=== PATIENT | male | born 1960 | race Caucasian/White ===

== ENCOUNTER 2019-09-11 12:33 | Emergency (ER) | payer MEDICAID ==
[2019-09-11] MEDS ORDERED: fentaNYL 250 MCG/5 ML SDV IVPUSH ONE (12:48)
--- NOTE | 2019-09-11 12:55 | EDM.PDOC ---
ED HPI GENERAL MEDICAL PROBLEM - General Chief Complaint: Abdominal Pain Stated Complaint: ABDOMINAL PAIN Time Seen by Provider: 09/11/19 12:45 Source of Information: Reports: Patient History Limitations: Reports: No Limitations - History of Present Illness INITIAL COMMENTS - FREE TEXT/NARRATIVE: This patient presented to the [facility] for evaluation of abdominal pain. He was evaluated by the clinic provider, sent for a CT of his abdomen ( without contrast) and left. He was out shopping and "running errands" when he received a phone call to return because "something was wrong." He was then referred to the ED for "a workup" based on the CT findings. Patient is not sure what he is to be seen for. According to CT report, the patient has a diverticulosis; report further states "focal perforation cannot be ruled out." The patient states that he has had abdominal pain intermittently the past 7-10 days. He has not had any nausea, vomiting, diarrhea, or fever. He has been eating solid foods, albeit in smaller amounts until last evening. He has been drinking clear liquids today. Onset: Gradual Onset Date: 09/01/19 Duration: Intermittent, Waxing/Waning Location: Reports: Abdomen Improves with: Reports: None Worsens with: Reports: None Associated Symptoms: Denies: Cough, Fever/Chills, Headaches, Loss of Appetite, Nausea/Vomiting, Rash, Shortness of Breath, Weakness - Related Data Allergies Allergy/AdvReac Type Severity Reaction Status Date / Time No Known Allergies Allergy Verified 09/11/19 12:56 ED ROS GENERAL - Review of Systems Review Of Systems: See Below Constitutional: Denies: Fever, Chills, Weakness, Decreased Appetite HEENT: Reports: No Symptoms Respiratory: Reports: No Symptoms Cardiovascular: Reports: No Symptoms Endocrine: Reports: No Symptoms GI/Abdominal: Reports: Abdominal Pain, Decreased Appetite. Denies: Distension, Nausea, Vomiting Skin: Reports: No Symptoms Neurological: Reports: No Symptoms ED EXAM, GI/ABD - Physical Exam Exam: See Below Exam Limited By: No Limitations General Appearance: Alert, WD/WN, No Apparent Distress Eyes: Bilateral: Normal Appearance Ears: Normal External Exam Nose: Normal Inspection Throat/Mouth: Normal Inspection Head: Atraumatic, Normocephalic Neck: Normal Inspection, Full Range of Motion Respiratory/Chest: No Respiratory Distress, Lungs Clear, Chest Non-Tender Cardiovascular: Normal Peripheral Pulses, Regular Rate, Rhythm GI/Abdominal Exam: Soft, No Distention, Other (Bowel sounds decreased in all quadrants, tenderness with palpation of bilateral lower quadrants, left greater than right.) Back Exam: Normal Inspection Extremities: Normal Inspection, Normal Range of Motion Neurological: Alert, Oriented Psychiatric: Normal Affect, Normal Mood Skin Exam: Warm, Dry Course - Orders/Labs/Meds Orders: Active Orders 24 hr Category Date Time Status Sodium Chloride 0.9% [Normal Saline] 1,000 ml Med 09/11/19 13:00 Ordered IV ASDIRECTED fentaNYL [Sublimaze] Med 09/11/19 12:48 Once 50 mcg IVPUSH ONETIME ONE Medication Orders Fentanyl (Sublimaze) 50 mcg IVPUSH ONETIME ONE Stop: 09/11/19 12:49 Sodium Chloride (Normal Saline) 1,000 mls @ 1,000 mls/hr IV ASDIRECTED [facility] Meds: Medications Generic Name Dose Route Start Last Admin Trade Name Freq PRN Reason Stop Dose Admin Fentanyl 50 mcg 09/11/19 12:48 Sublimaze IVPUSH 09/11/19 12:49 ONETIME ONE Sodium Chloride 1,000 mls @ 1,000 mls/hr 09/11/19 13:00 Normal Saline IV ASDIRECTED GE - Re-Assessments/Exams Free Text/Narrative Re-Assessment/Exam: 09/11/19 12:58 Patient presents to ED for follow up to a CT scan obtained by clinic provider. Clinic provider (Roly) made arrangements for the transfer of this patient to [facility] related to his pain and CT scan findings. Roly states she contacted the [facility] hospitalist, Dr. Conner, who did agree to accept this patient in transfer to their facility. I did confirm this information via phone with [facility]. The patient was prepared for transfer via S ground ambulance and was stable at the time he was transferred to [facility]. Departure - Departure Time of Disposition: 13:30 Disposition: DC/Tfer to Other 70 Condition: Good Clinical Impression: Diverticulosis - Discharge Information *PRESCRIPTION DRUG MONITORING PROGRAM REVIEWED*: No Referrals: PCP,Unknown [Primary Care Provider] - Forms: ED Department Discharge, ED Return to Work/School Form, Interfacility Transfer EMTALA - My Orders Last 24 Hours: My Active Orders 09/11/19 12:48 fentaNYL [Sublimaze] 50 mcg IVPUSH ONETIME ONE 09/11/19 13:00 Sodium Chloride 0.9% [Normal Saline] 1,000 ml IV ASDIRECTED - Assessment/Plan Last 24 Hours: My Active Orders 09/11/19 12:48 fentaNYL [Sublimaze] 50 mcg IVPUSH ONETIME ONE 09/11/19 13:00 Sodium Chloride 0.9% [Normal Saline] 1,000 ml IV ASDIRECTED
[2019-09-11] MEDS ORDERED: Sodium Chloride 0.9% 1,000 ML IV SCH (13:00)
[2019-09-11] MEDS ORDERED: fentaNYL 100 MCG/2 ML SDV ONE (13:24)
== END 2019-09-11 14:15 | disposition other institution (70) ==
LOC: LB.ED 12:33
DX: K57.90 Diverticulosis of intestine, part unspecified, without perforation or abscess without bleeding (principal)
CPT/HCPCS: 96361; 96374; 99284-25; A0425; A0429; J3010; J7030

== ENCOUNTER 2020-06-30 11:35 | Emergency (ER) | payer MEDICAID, OTHER ==
--- NOTE | 2020-06-30 12:37 | EDM.PDOC ---
ED HPI GENERAL MEDICAL PROBLEM - General Stated Complaint: STROKE SYMPTOMS Time Seen by Provider: 06/30/20 11:55 Source of Information: Reports: Patient History Limitations: Reports: No Limitations - History of Present Illness INITIAL COMMENTS - FREE TEXT/NARRATIVE: Just after 1000 this morning patient noticed right arm and leg numbness and weakness and slurred speech after having breakfast. En route to Hospital he feels that the slurred speech and leg weakness resolved, but arm weakness and arm and leg numbness persists. Patient ambulated into ED without gait issues. BS [address] Neuro exam reveals right arm drift, decreased sensation in right side of face, and numbness at right knee other michaels unremarkable. NIH 2. Called [place] and spoke with Dr. Remy with neuro, and ED MD, they would like BP less than 185/110 then TPA started, and transfer to Stroke neuro [place]. Called [facility], Stroke Neurologist Dr. Barraza, he would like TPA started and rapid transport to [place]. Patient will be assessed in the ED on arrival. 1310 TPA bolus given, BP 163/90 after 10mg IV labetolol. Helicopter 49 minutes ETA [place] from [place]. 1330 TPA infusion running, no changes in neuro status, no signs of obvious bleeding. 1345 TPA infusion running, no neuro changes, no obvious bleeding 1405 No neuro changes, slight bleeding on left tip of tongue, patient states he bit it yesterday. No other obvious bleeding. Onset: Today Onset Date: 06/30/20 Duration: Intermittent Location: Reports: Face, Upper Extremity, Right, Lower Extremity, Right Severity: Mild Improves with: Reports: None Worsens with: Reports: None Associated Symptoms: Reports: No Other Symptoms, Weakness - Related Data Allergies Allergy/AdvReac Type Severity Reaction Status Date / Time No Known Allergies Allergy Verified 09/11/19 12:56 Home Meds: Home Meds Metoprolol Tartrate [Lopressor] 25 mg PO BID 09/11/19 [History] atorvaSTATin [Lipitor] 40 mg PO DAILY 09/11/19 [History] metFORMIN [Glucophage] 500 mg PO BIDMEALS 09/11/19 [History] Past Medical History Cardiovascular History: Reports: High Cholesterol, Hypertension Gastrointestinal History: Reports: Diverticulosis Musculoskeletal History: Reports: None Endocrine/Metabolic History: Reports: Diabetes, Type II Social & Family History - Caffeine Use Caffeine Use: Reports: Coffee ED ROS GENERAL - Review of Systems Review Of Systems: See Below Constitutional: Reports: Weakness HEENT: Reports: No Symptoms Respiratory: Reports: No Symptoms Cardiovascular: Reports: No Symptoms Endocrine: Reports: No Symptoms GI/Abdominal: Reports: No Symptoms : Reports: No Symptoms Skin: Reports: No Symptoms Neurological: Reports: Numbness, Tingling, Weakness. Denies: Confusion, Headache, Trouble Speaking, Gait Disturbance Psychiatric: Reports: No Symptoms Hematologic/Lymphatic: Reports: No Symptoms ED EXAM, NEURO - Physical Exam Exam: See Below Exam Limited By: No Limitations General Appearance: Alert, No Apparent Distress Eye Exam: Bilateral Eye: Normal Inspection, PERRL, Vision Changes (DENIES) Ears: Normal External Exam, Normal Canal, Hearing Grossly Normal, Normal TMs Nose: Normal Inspection, Normal Mucosa, No Blood Throat/Mouth: Normal Inspection, Normal Lips, Normal Teeth, Normal Gums, Normal Oropharynx, Normal Voice, No Airway Compromise Head Exam: Atraumatic Neck: Normal Inspection, Non-Tender, Full Range of Motion Respiratory/Chest: No Respiratory Distress, Lungs Clear, Normal Breath Sounds, No Accessory Muscle Use. No: Respiratory Distress, Decreased Breath Sounds Cardiovascular: Normal Peripheral Pulses, Regular Rate, Rhythm, No Edema, No JVD, No Murmur GI/Abdominal: Normal Bowel Sounds, Soft, Non-Tender, No Organomegaly, No Distention (Male) Exam: Normal Inspection Neurological: Alert, Normal Mood/Affect, Normal Dorsiflexion, CN II-XII Intact, Normal Plantar Flexion, Normal Gait, Normal Reflexes, Oriented x 3, Abnormal Sensation Back Exam: Normal Inspection, Full Range of Motion Extremities: Normal Inspection, Normal Range of Motion, Non-Tender, No Pedal Edema, Normal Capillary Refill Psychiatric: Normal Affect, Normal Mood Skin Exam: Warm, Dry, Intact *Q Meaningful Use (ADM) - Stroke *Q Stroke Criteria *Q: 4 Course - Vital Signs Last Recorded V/S: Last Vital Signs Temp 99.7 F 06/30/20 12:00 Pulse 90 06/30/20 13:50 Resp 17 06/30/20 13:50 BP 156/90 H 06/30/20 13:50 Pulse Ox 98 06/30/20 13:50 - Orders/Labs/Meds Orders: Active Orders 24 hr Category Date Time Status Assess Neurological Status [RC] CONTINUOUS Care 06/30/20 13:35 Ordered Blood Glucose Check, Bedside [RC] ONETIME Care 06/30/20 12:12 Active EKG Documentation Completion [RC] ASDIRECTED Care 06/30/20 12:12 Active CXR [Chest 1V Frontal] [CR] Stat Exams 06/30/20 12:52 Taken Blood Pressure Mgmt:Acute Stroke [OM.PC] Urgent Oth 06/30/20 12:30 Ordered Notify MD for bleeding or neuro changes [COMM] Routine Oth 06/30/20 13:08 Ordered Notify MD for bleeding or neuro changes [COMM] Stat Oth 06/30/20 13:35 Ordered Labs: Laboratory Tests 06/30/20 06/30/20 06/30/20 Range/Units 12:06 12:20 13:28 WBC 7.6 D (4.0-11.0) K/uL RBC 4.62 (4.50-6.50) M/uL Hgb 14.2 (13.0-18.0) g/dL Hct 40.5 (40.0-54.0) % MCV 88 (76-96) fL MCH 30.7 (27.0-32.0) pg MCHC 35.1 H (31.0-35.0) g/dL RDW 13.0 (11.0-16.0) % Plt Count 197 D (150-400) K/uL MPV 8.9 (6.0-10.0) fL Neut % (Auto) 73.3 H (45.0-70.0) % Lymph % (Auto) 18.0 L (20.0-40.0) % [place] % (Auto) 6.3 (3.0-10.0) % Eos % (Auto) 2.0 (1.0-5.0) % Baso % (Auto) 0.4 (0.0-0.5) % Neut # (Auto) 5.58 (2.00-7.50) K/uL Lymph # (Auto) 1.37 L (1.50-4.00) K/uL [place] # (Auto) 0.48 (0.20-0.80) K/uL Eos # (Auto) 0.15 (0.04-0.40) K/uL Baso # (Auto) 0.03 (0.02-0.10) K/uL Sodium 138 (136-145) mmol/L Potassium 4.4 (3.5-5.1) mmol/L Chloride 102 (98-107) mmol/L Carbon Dioxide 26.2 (21.0-32.0) mmol/L Anion Gap 14.2 (5.0-15.0) mmol/L BUN 17 D (8-26) mg/dL Creatinine 1.00 (0.70-1.30) mg/dL Est Cr Clr Drug Dosing 68.33 mL/min Estimated GFR (MDRD) > 60 (>60) MLS/MIN BUN/Creatinine Ratio 17.0 (6-25) Glucose 121 H (74-100) mg/dL Calcium 9.1 (8.5-10.1) mg/dL Total Bilirubin 0.5 D (0.0-1.0) mg/dL AST 15 (15-37) U/L ALT 27 (12-78) U/L Alkaline Phosphatase 52 (46-116) U/L Total Protein 7.3 (6.4-8.2) g/dL Albumin 3.7 (3.4-5.0) g/dL Globulin 3.6 (2.2-4.2) g/dL Albumin/Globulin Ratio 1.0 (0.8-2.0) SARS CoV-2 RNA Rapid ELOY Negative Meds: Medications Discontinued Medications Generic Name Dose Route Start Last Admin Trade Name Freq PRN Reason Stop Dose Admin Alteplase, Recombinant 63 mg 06/30/20 13:08 06/30/20 13:08 Activase IVPUSH 06/30/20 13:09 63 mg .BOLUS ONE Administration Alteplase, Recombinant 63 mg/ 0 mls @ 0 mls/hr 06/30/20 13:10 06/30/20 13:20 Premix IV 06/30/20 13:11 63 mls/hr .INFUSION ONE Administration Labetalol HCl 10 mg 06/30/20 12:39 06/30/20 12:40 Normodyne IVPUSH 06/30/20 12:40 10 mg ONETIME ONE Administration Protocol Departure - Departure Time of Disposition: 14:30 Disposition: [facility] Condition: Good Clinical Impression: Numbness and tingling of right arm, CVA, Cerebrovascular accident Stroke Qualifiers: CVA mechanism: unspecified Qualified Code(s): I63.9 - Cerebral infarction, unspecified - Discharge Information *PRESCRIPTION DRUG MONITORING PROGRAM REVIEWED*: Not Applicable *COPY OF PRESCRIPTION DRUG MONITORING REPORT IN PATIENT NIKKI: Not Applicable Instructions: Alteplase Treatment for Ischemic Stroke Forms: ED Department Discharge Sepsis Event Note (ED) - Focused Exam Vital Signs: Vital Signs Temp Pulse Resp BP BP Pulse Ox 06/30/20 13:50 90 17 156/90 H 98 06/30/20 13:33 91 18 172/95 H 100 06/30/20 13:05 89 163/90 H 98 06/30/20 13:03 87 15 164/90 H 98 06/30/20 12:59 86 157/91 H 97 06/30/20 12:45 91 165/91 H 96 06/30/20 12:38 84 165/97 H 95 06/30/20 12:15 85 178/106 H 97 06/30/20 12:00 99.7 F 91 17 191/98 H 96 06/30/20 11:59 99.7 F 91 20 191/98 H 96 - My Orders Last 24 Hours: My Active Orders 06/30/20 12:12 Blood Glucose Check, Bedside [RC] ONETIME EKG Documentation Completion [RC] ASDIRECTED 06/30/20 12:30 Blood Pressure Mgmt:Acute Stroke [OM.PC] Urgent 06/30/20 12:52 CXR [Chest 1V Frontal] [CR] Stat 06/30/20 13:08 Notify MD for bleeding or neuro changes [COMM] Routine 06/30/20 13:35 Assess Neurological Status [RC] CONTINUOUS Notify MD for bleeding or neuro changes [COMM] Stat - Assessment/Plan Last 24 Hours: My Active Orders 06/30/20 12:12 Blood Glucose Check, Bedside [RC] ONETIME EKG Documentation Completion [RC] ASDIRECTED 06/30/20 12:30 Blood Pressure Mgmt:Acute Stroke [OM.PC] Urgent 06/30/20 12:52 CXR [Chest 1V Frontal] [CR] Stat 06/30/20 13:08 Notify MD for bleeding or neuro changes [COMM] Routine 06/30/20 13:35 Assess Neurological Status [RC] CONTINUOUS Notify MD for bleeding or neuro changes [COMM] Stat
[2020-06-30] MEDS ORDERED: Labetalol 100 MG/20 ML MDV IVPUSH ONE (12:39)
--- NOTE | 2020-06-30 13:07 | CT ---
Date of Service: 06/30/20 Clinical Data: focal weakness UNENHANCED BRAIN CT: Multislice acquisition through the brain without IV contrast was performed. No priors. No masses or mass effect. No intracranial hemorrhage. No evidence of acute or subacute infarct. No osseous abnormalities. IMPRESSION: No acute intracranial abnormalities. [id number] [facility]
[2020-06-30] MEDS ORDERED: ALTEPLASE IV ONE (13:10)
--- NOTE | 2020-07-01 17:15 | CR ---
DATE OF SERVICE: 06/30/20 CLINICAL DATA: weakness AP CHEST: No priors. The patient has taken a poor inspiration. The heart size is normal. There is mild eventration of the right hemidiaphragm. The lungs are clear. No pneumothorax. No pleural effusions. [id number] [facility]
--- OUTSIDE RECORDS SUMMARY | 2020-08-24 15:24 | XMSREPORT ---
:1960 Author Organization [facility] s Address [address] [place] [address] Care Team Providers Name Role Phone Provider, Attributed RESOURCE Attributed Provider Unavailab mario Dunham APRN,VICKY Primary Care Provider MD Scottie Primary Care Provider Reason for Referral Comprehensive Primary Care Plus (Routine) Status Reason Specialty Diagnoses / Referred By Referred To Procedures Contact Contact New Request SLEEP MEDICINE Diagnoses Cerebrovascular accident (CVA), unspecified mechanism (HCC) Diana Carvalho Sleep Med Jorge Garcia MD [address] [address] [place], [place] Phone: [phone] Phone: Scheduling Instructions This is an electronic referral. Comprehensive Primary Care Plus (Routine) Status Reason Specialty Diagnoses / Referred By Referred To Procedures Contact Contact New Request CARDIOLOGY Diagnoses Cardiomyopathy, unspecified type (HCC) Holden Carvalho Cardiology Jorge Garcia MD [address] [address] [place] [address] Phone: Scheduling Instructions This is an electronic referral. Comprehensive Primary Care Plus (Routine) Status Reason Specialty Diagnoses / Referred By Referred To Contact Procedures Contact New Request Neurosurgery Diagnoses Cerebrovascular accident (CVA), unspecified mechanism (HCC) Johnathon Carvalho Neurovascular Sc Holden Garcia MD [address] [address] [place] [address] Phone: Fax: Scheduling Instructions This is an electronic referral. Reason for Visit Reason Comments Slurred Speech Patient arrives via [facility] michelle Trevino with concerns for stroke. Patient states around 1045 h e noticed his speech was slurred and numbness to right side of jitendra dy. Patient was given TPA prior to arrival in this ER. Per report, NIHS S was 2. TPA bolus given at 1310 and infusion ended at 1410. Auth/Cert Status Reason Specialty Diagnoses / Procedures Referred By Galdino brown Referred To Contact Encounter Details Date Type Department Care Team Description 06/30/2020 - Hospital Encounter [facility] Department [address] [place] [address] [phone] Stroke (cerebrum) 07/02/2020 CENTER 6AB NEURO Deshaun Bush MD [address] [place] [address] [phone] ([facility]) Herbert Ruiz MD [address] [place] [address] [phone] [address] [facility] Holden Carvalho MD [address] [place], [place] [id number] [place] [address] Allergies No Known Allergiesdocumented as of this encounter (statuses as of 07/02/2020) Medications Medication Sig Dispensed Refills Start End Date Status Date lisinopril Take 10 mg by 1 Activ e (PRINIVIL, ZESTRIL) mouth every 9 10 mg tablet night at bedtime metFORMIN Take 500 mg 3 Active (GLUCOPHAGE) 1000 MG by mouth 2 9 tablet times a day Turmeric (QC TUMERIC Take 1 0 Active COMPLEX PO) capsule by mouth 1 time per day CBD (cannabidiol) Take by mouth 0 Active oil 2 times a day as needed (ankle pain) miscellaneous oral Take 1-2 0 A ctive medication MISC capsules by mouth 1 time per day Qeeu-v-Iycyhm (systemic enyzme and herbal extract formula) aspirin 81 mg Take 1 tablet 30 tablet 1 07/23/20 Ac tive enteric coated (81 mg) by 0 20 tabletIndications: mouth 1 time Cerebrovascular per day for accident (CVA), 21 days unspecified mechanism (HCC) atorvaSTATin calcium Take 1 tablet 30 tablet 1 08/01 Active (LIPITOR) 80 mg (80 mg) by 0 20 tabletIndications: mouth every Cerebrovascular night at accident (CVA), bedtime unspecified mechanism (HCC) metoprolol succinate Take 1 tablet 90 tablet 4 07/08 Active (TOPROL XL) 100 mg (100 mg) by 0 21 SR tablet (24 mouth 1 time hr)Indications: per day Cardiomyopathy, unspecified type (HCC) clopidogrel (PLAVIX) Take 1 tablet 21 tablet 0 07/23 Active 75 mg (75 mg) by 0 20 tabletIndications: mouth 1 time Cerebrovascular per day for accident (CVA), 21 days unspecified mechanism (HCC) aspirin 325 MG Take 1 tablet 180 tablet 0 Active enteric coated (325 mg) by 0 tabletIndications: mouth 1 time Cerebrovascular per day accident (CVA), unspecified mechanism (HCC) atorvaSTATin Take 20 mg by 10 07/02/20 Dis continued (LIPITOR) 40 mg mouth every 9 20 (R eorder) tablet night at bedtime metoprolol tartrate Take 50 mg by 3 Discontinued (LOPRESSOR) 50 mg mouth 2 times 9 20 (Stop Taking at tablet a day Discharge) vitamin D3, Take 400 0 06/30/20 Disconti nued cholecalciferol, 400 Units by 20 (file clerk data entry units tablet mouth 2 times err or) a day aspirin 81 mg Take 81 mg by 0 07/02/20 Di scontinued enteric coated mouth 1 time 20 (R eorder) tablet per day documented as of this encounter (statuses as of 07/02/2020) Active Problems Problem Noted Date Ischemic cardiomyopathy 07/02/2020 Stroke (cerebrum) 06/30/2020 Acute diverticulitis 09/11/2019 Other and unspecified hyperlipidemia Postsurgical percutaneous transluminal coronary angiop lasty status Coronary atherosclerosis of andreafski coronary artery documented as of this encounter (statuses as of 07/02/2020) Immunizations Name Administration Dates Next Due FLU VACCINE SINGLE DOSE 09/16/2019 0.5mL(6MO+Fluzone/Flulaval/Fluarix,3YR+Afluria) documented as of this encounter Social History Tobacco Use Types Packs/Day Years Used Date Former Smoker Cigarettes, Pipe 1.5 Quit: 01/12 Smokeless Tobacco: Former User Comments: Cuurent Pipe Alcohol Use Drinks/Week oz/Week Comments Yes 21 Cans of beer 21.0 3 Beers Alcohol Habits Answer Date Recorded How often do you have a drink containing 4 or more times a w w[place] 09/11/2019 alcohol? How many drinks containing alcohol do you have 3 or 4 09/11/2019 on a typical day when you are drinking? How often do you have six or more drinks on one Less than mo nthly 09/11/2019 occasion? Sex Assigned at Date Recorded Not on file Job Start Date Occupation Industry Not on file Not on file Not on file Travel History Travel Start Travel End No recent travel history available. documented as of this encounter Last Filed Vital Signs Vital Sign Reading Time Taken Comments Blood Pressure 153/90 07/02/2020 9:19 AM CDT Pulse 94 07/02/2020 9:19 AM CDT Temperature 36.7 C (98 F) 07/02/2020 9:19 AM CDT Respiratory Rate 16 07/02/2020 9:19 AM CDT Oxygen Saturation 97% 07/02/2020 9:19 AM CDT Inhaled Oxygen Concentration - - Weight 73.9 kg (162 lb 14.4 oz) 07/02/2020 5:13 AM CDT Height 165.1 cm (5' 5") 06/30/2020 6:00 PM CDT Body Mass Index 27.11 06/30/2020 6:00 PM CDT documented in this encounter Functional Status Functional Status Response Date of Assessment Is the person deaf or does he/she have serious difficulty No 10/29/2019 hearing? Is this person blind or does he/she have difficulty No 10/29/2019 seeing even when wearing glasses? Do you have difficulty with walking, balance, climbing No 07/01/2020 stairs, or had a fall in the last 3 months? Does the patient have difficulty dressing or bathing? No 10/29/2019 Because of a physical, mental, or emotional condition; No 10/29/2019 does this person have difficulty doing errands alone such as visiting a doctor's office or shopping? Cognitive Status Response Date of Assessment Because of a physical, mental, or emotional condition; No 10/29/2019 does this person have serious difficulty concentrating, remembering, or making decisions? documented as of this encounter Discharge Summaries Holden Carvalho MD - 07/02/2020 11:14 AM CDT Discharge Summary Patient ID: Valencia Mora is a 60yr male. Attending Physician: Holden Carvalho MD Discharging Provider Specialty: Adult Hospitalist, Internal Medicine Admit Date: 06/30/2020 Discharge Date: 07/02/2020 Primary Care Physician: Jim Rubin MD Code Status: Full Code Primary Discharge Diagnoses <principal problem not specified> Active Problems: Coronary atherosclerosis of andreafski coronary artery Stroke (cerebrum) (HCC) Ischemic cardiomyopathy Resolved Problems: * No resolved hospital problems. * RUE weakness and hemipbody numbness, s/p tPA. MRI shows thalamic infarct which is typically small vessel in etiology. ASA 81 mg and Plavix 75 mg x 21 days till 07/23/2020 , then ASA 325 mg. Cardiomyopathy: EF 40%, cardiology recommended outpatient follow-up. Secondary Discharge Diagnoses Patient Active Problem List Diagnosis Other and unspecified hyperlipidemia Postsurgical percutaneous transluminal coronary angioplasty status Coronary atherosclerosis of andreafski coronary artery Acute diverticulitis Stroke (cerebrum) (HCC) Ischemic cardiomyopathy Hospital Course 60-year-old male with history of hypertension, hyperlipidemia, diabetes, CAD, last known well 10:45 AM on day of admission, he presented to outside hospital with mild right hemiparesis and hemibody numbness, NIH stroke scale of 2, CT negative for hemorrhage, status post IV TPA (bolus 1:10 PM on 06/30/2020), CTA negative for large vessel occlusion/flow-limiting stenosis - Neurovascular was consulted and they recommended that this Clinical presentation could be consistent with left hemispheric subcortical/left thalamic stroke. Patient does have scattered calcified plaque in the left common carotid artery. Patient was monitored in neuro ICU for IV TPA protocol, MRI brain at 24 hours post TPA was unremarkable. Patient transferred to general floor on 07/01/2020. Neurovascular recommended ASA 81 mg and Plavix 75 mg x 21 days, then ASA 325 mg. high-intensity statin, no need for anti-coagulation given EF more than 40%. Regarding cardiac history he has past medical history significant for CAD s/p STEMI in 2006 with bare metal stent to CX who initially presented with RUE weakness, likely small vessel infarct. An ECHO was obtained which showed EF of 40%, which is new for him. Cardiology consulted: Due to concerns of recent infarct and lack of symptoms, cardiology defered coronary ischemic eval due to decrease in EF - Recommend follow up with Cardiology in clinic 3-4 weeks in [place] following discharge; to consider stress testing at that time - Continue current cardiac medications : Toprol XL, lisinopril, Lipitor and aspirin. PT/OT: Recommending home health versus outpatient, He prefers to do outpatient physical therapy and occupational therapy, ordered on discharge. Patient discharged in a stable medical condition with the following discharge recommendations -- Dual antiplatelet therapy aspirin 81 mg daily and Plavix 75 mg daily for 21 days till 07/23/2020. - Aspirin 325 mg daily afterwards starting from 07/24/2020. - High-intensity statin, increased home Lipitor from 40 to 80 mg daily. - Given EF 40% : I Changed home Lopressor 50 mg 2 times a day to Toprol XL 100 mg daily. - Outpatient PT/OT arranged. -- Abnormal sleep study, sleep referral was sent. -- NeuroVascular follow-up in 3 months. -- Follow up with Cardiology in clinic 4 weeks in [place] following discharge; to consider stress testing at that time Per cardiology recommendations. Procedures Performed and Findings * No surgery found * Discharge Exam Vital Signs: Temp: 98 F (36.7 C) | BP: 153/90 | Pulse: 94 | Resp: 16 | Pain Ratin (out of 10) | Weight: 73.9 kg (162 lb 14.4 oz) | O2 Device: Room Air | SpO2: 97 % Intake and Output: No intake/output data recorded. Physical Exam Constitutional: No distress. Eyes: Right eye exhibits no discharge. Neck: No JVD present. Cardiovascular: Normal rate and regular rhythm. No murmur heard. Pulmonary/Chest: He has no wheezes. He has no rales. Abdominal: Soft. He exhibits no mass. There is no tenderness. Musculoskeletal: He exhibits no edema. Neurological: He is alert. Skin: No erythema. Psychiatric: He has a normal mood and affect. Consults CONSULT NEUROVASCULAR ULTRASOUND TECH REFERRAL CONSULT REHAB PHYSICAL MEDICINE CONSULT NEUROVASCULAR NUTRITION REFERRAL CASE MANAGEMENT CONSULT ULTRASOUND TECH REFERRAL CONSULT CARDIOLOGY Discharge Disposition Discharge Medications Medication List START taking these medications clopidogrel 75 mg tablet Commonly known as: PLAVIX Take 1 tablet (75 mg) by mouth 1 time per day for 21 days metoprolol succinate 100 mg SR tablet (24 hr) Commonly known as: TOPROL XL Take 1 tablet (100 mg) by mouth 1 time per day Start taking on: July 03, 2020 CHANGE how you take these medications * aspirin 81 mg enteric coated tablet Take 1 tablet (81 mg) by mouth 1 time per day for 21 days What changed: Another medication with the same name was added. Make sure you understand how and when to take each. * aspirin 325 mg tablet Take 1 tablet (325 mg) by mouth 1 time per day Start taking on: July 24, 2020 What changed: You were already taking a medication with the same name, and this prescription was added. Make sure you understand how and when to take each. atorvaSTATin calcium 80 mg tablet Commonly known as: LIPITOR Take 1 tablet (80 mg) by mouth every night at bedtime What changed: medication strength how much to take * This list has 2 medication(s) that are the same as other medications prescribed for you. Read thedirections carefully, and ask your doctor or other care provider to review them with you. CONTINUE taking these medications CBD (cannabidiol) oil lisinopril 10 mg tablet Commonly known as: PRINIVIL, ZESTRIL metFORMIN 1000 MG tablet Commonly known as: GLUCOPHAGE miscellaneous oral medication Misc QC TUMERIC COMPLEX PO STOP taking these medications metoprolol tartrate 50 mg tablet Commonly known as: LOPRESSOR Where to Get Your Medications These medications were sent to [facility] [address] [facility] [address] Hours: M-F 8am-9pm, Sat-Sun 9am-9pm aspirin 325 mg tablet aspirin 81 mg enteric coated tablet atorvaSTATin calcium 80 mg tablet clopidogrel 75 mg tablet metoprolol succinate 100 mg SR tablet (24 hr) Discharge Instructions See [facility] for discharge instructions. Tests Pending at Discharge Follow-Up Scheduled See AVS for Follow up appointments made Medical Decision Making The time spent on discharge coordination was less than 30 minutes. documented in this encounter Discharge Instructions Margo Meade RN - 07/02/2020 Stroke / TIA Discharge Instructions Medications Medications are an important part of reducing your risk of stroke and transient ischemic attack (TIA) always take medications as directed; do not skip doses. If you are unable to take your medications, please contact your provider. See schedule of discharge medications. If you are on a blood thinner (anticoagulant), call your provider if any signs of bleeding (bruising, blood in urine, stool, vomit, or sputum). Please contact your provider before beginning or resuming herbal and/or vitamin supplements. Review of Risk Factors and Interventions Smoking? No Advised to quit? No Do not smoke or use tobacco. Ask family members to stop smoking. Talk to your provider about using the nicotine patch or other medication. Join a smoking cessation group. High Blood Pressure? Yes Your BP: 153/90 Goal BP is less than 140/90 mmHg or as recommended by your provider Monitor your Blood Pressure Lower your blood pressure by losing weight, exercising, and eating less salt. High Cholesterol? Your current LDL (bad cholesterol) No results found for: LDLDIR Lab Results Component Value Date LDL 07/01/2020 Comment: LDL invalid due to Triglyceride >400 Your goal LDL (bad cholesterol) level is less than 70. Review your cholesterol levels with your provider. Follow a low fat and low cholesterol diet. Diabetes? Yes HgbA1c value Lab Results Component Value Date HGBA1C 5.9 (H) 06/30/2020 Your goal is to keep your HgbA1c less than 7 mg/dL. Follow your diet and exercise plan as directed. Keeping your blood sugars under control will lower your risk for another stroke / transient ischemic attack (TIA). Exercise? Yes Exercise as directed. Staying active (walking or riding a stationary bike) for 30 minutes 5 times a week could reduce the risk of stroke. Alcohol Use? No No more than 1 - 2 alcoholic drinks a day. It is very important that you keep all your appointments. Call 911 immediately if you are experiencing any of these common warning signs of stroke / TIA Sudden numbness or weakness of the face, arm or leg, especially on one side of the body. Sudden confusion, trouble speaking or understanding speech. Sudden trouble seeing in one or both eyes. Sudden trouble walking, dizziness, loss of balance or coordination. Sudden severe headache with no known cause. For more information about stroke contact [place] Stroke Association [facility], , www.strokeassociation.org National Stroke Association, , www.stroke.org National [place] of Neurological Disorders and Stroke, , www. ninds.nih.gov Patient/Family Goals Goals discussed with patient Short Term Goal: Discharge home safely. Progression of goal demonstrated by: Take medications as prescribed, monitor blood pressure, and keep blood sugars under control. Allergy Nurse Goal: No further strokes. Progression of goal demonstrated by: Take medications as prescribed, exercise moderately for 30 minutes 5 times a week, keep blood sugars under control, eat more leafy green vegetables, and keep blood pressures under control. documented in this encounter Medications at Time of Discharge Medication Sig Dispensed Refills Start Date End Date aspirin 81 mg enteric Take 1 tablet (81 30 tablet 1 020 07/23/2020 coated tabletIndications: mg) by mouth 1 Cerebrovascular accident time per day for (CVA), unspecified 21 days mechanism (HCC) atorvaSTATin calcium Take 1 tablet (80 30 tablet 1 07/02/20 20 08/01/2020 (LIPITOR) 80 mg mg) by mouth every tabletIndications: night at bedtime Cerebrovascular accident (CVA), unspecified mechanism (HCC) metoprolol succinate Take 1 tablet (100 90 tablet 4 020 07/08/2021 (TOPROL XL) 100 mg SR mg) by mouth 1 tablet (24 hr)Indications: time per day Cardiomyopathy, unspecified type (HCC) clopidogrel (PLAVIX) 75 mg Take 1 tablet (75 21 tablet 0 07/23/2020 tabletIndications: mg) by mouth 1 Cerebrovascular accident time per day for (CVA), unspecified 21 days mechanism (HCC) Turmeric (QC TUMERIC Take 1 capsule by 0 COMPLEX PO) mouth 1 time per day CBD (cannabidiol) oil Take by mouth 2 0 times a day as needed (ankle pain) miscellaneous oral Take 1-2 capsules 0 medication MISC by mouth 1 time per day Cief-y-Hriegs (systemic enyzme and herbal extract formula) lisinopril (PRINIVIL, Take 10 mg by 1 09/11/2019 ZESTRIL) 10 mg tablet mouth every night at bedtime metFORMIN (GLUCOPHAGE) Take 500 mg by 3 9 1000 MG tablet mouth 2 times a day aspirin 325 MG enteric Take 1 tablet (325 180 tablet 0 07/24 coated tabletIndications: mg) by mouth 1 Cerebrovascular accident time per day (CVA), unspecified mechanism (HCC) documented as of this encounter Progress Notes Valencia Jung MD - 07/02/2020 10:16 AM CDT NEUROLOGY INPATIENT FOLLOW-UP NOTE 07/02/2020 NAME: Valencia Mora is a 60yr old male 1960 Impression RUE weakness and hemipbody numbness, s/p tPA. MRI shows thalamic infarct which is typically small vessel in etiology. Plan 1. ASA 81 mg and Plavix 75 mg x 21 days, then ASA 325 mg. 2. Tele 3. TTE- EF 40%, would not recommend anticoagulation based on > 35% 4. High intensity statin, HgA1C at goal 5. BP <130/80 jail 6. SCDs 7. Outpatient sleep referral for EDMOND eval 8. PT/OT/Speech. Rehab consulted. 9. F/U in Stroke Clinic in 3 months. Will sign off. Interval History Stable Medications Current Facility-Administered Medications Medication Dose Route Frequency Provider Last Rate Last Dose metoprolol succinate (TOPROL XL) SR tablet (24 hr) 100 mg 100 mg Oral Daily Holden Carvalho MD 100 mg at 07/02/20 0920 lisinopril (PRINIVIL, ZESTRIL) tablet 10 mg 10 mg Oral Daily Holden Carvalho MD 10 mg at07/02/20 0920 aspirin enteric coated tablet 81 mg 81 mg Oral Daily Holden Carvalho MD 81 mg at 07/02/20 0920 atorvaSTATin (LIPITOR) tablet 80 mg 80 mg Oral Daily Elvi Deng APRN- BOO 80 mg at 07/02/20 0920 dextrose 50% IV solution 50 mL 25 g IV PRN per parameter Elvi Deng APRN-CNP glucagon for injection 1 mg vial 1 mg 1 mg Intramuscular PRN per parameter Elvi Deng APRN-CNP dextrose chewable tablet 16 g 4 tablet Oral PRN per parameter Elvi Deng APRN-CNP Or carbohydrate 15 g 15 g Oral PRN per parameter Elvi Deng APRN-CNP insulin aspart (NovoLOG) SQ correction scale (Adult) 2-12 Units Subcutaneous 3 times a day Elvi Deng APRN-CNP hydrALAZINE (APRESOLINE) injection solution 10 mg 10 mg IV Every 4 hours prn Elvi Deng APRN-CNP sodium chloride 0.9% flush (adult) 10 mL 10 mL IV 2 times a day and prn Luis Hook MD 10 mL at 07/02/20 0922 bisacodyl (DULCOLAX) suppository 10 mg 10 mg Rectal 1 time a day prn Luis Hook MD ondansetron (ZOFRAN) injection solution 4 mg 4 mg IV Every 4 hours prn Luis Hook MD acetaminophen (TYLENOL) tablet 650 mg 650 mg Oral Every 6 hours prn Luis Hook MD 650 mg at 07/01/202007 Or acetaminophen (TYLENOL) suppository 650 mg 650 mg Rectal Every 6 hours prn Luis Hook MD labetalol (NORMODYNE;TRANDATE) IV solution 10-40 mg 10-40 mg IV Every 10 minutes prn Luis Hook MD Allergies No Known Allergies Physical Exam No flowsheet data found. General Exam: Vital Signs - BP 153/90 Pulse 94 Temp 98 F (36.7 C) Resp 16 Ht 1.651 m (5' 5") Wt 73.9 kg (162 lb 14.4 oz) SpO2 97% BMI 27.11 kg/m2|| Exam deferred Labs/Imaging MIKAYLA-EF 40% MRI- L thalamic infarct, no ICH CTA- no LVO or FLS LDL- unable to assess due to TGs Procedures Valencia Jung MD Valencia An MD - 07/01/2020 10:00 AM CDT NEUROLOGY INPATIENT FOLLOW-UP NOTE 07/01/2020 NAME: Valencia Mora is a 60yr old male 1960 Impression RUE weakness and hemipbody numbness, s/p tPA. Suspect small vessel thalamo- cortical infarct Plan 1. Post tPA care 3. Dysphagia screen 4. TTE 5. MRI brain at 1300. If no ICH, can come to Neuro floor with q4 Neuro checks. May start ASA 81 mg if pass swallow eval. 6. STAT head CT for NIHSS change >4 7. Tele 8. High intensity statin, HgA1C at goal 9. BP <180/105 10. SCDs 11. PT/OT/Speech I appreciate the opportunity to participate in the care of this patient. At this time, the Neurology service will continue to follow. Please feel free to contact me with any questions or concerns. Interval History Stable Medications Current Facility-Administered Medications Medication Dose Route Frequency Provider Last Rate Last Dose atorvaSTATin (LIPITOR) tablet 80 mg 80 mg Oral Daily Elvi Deng APRN-CNP dextrose 50% IV solution 50 mL 25 g IV PRN per parameter Elvi Deng APRN-CNP glucagon for injection 1 mg vial 1 mg 1 mg Intramuscular PRN per parameter Elvi Deng APRN-CNP dextrose chewable tablet 16 g 4 tablet Oral PRN per parameter Elvi Deng APRN-CNP Or carbohydrate 15 g 15 g Oral PRN per parameter Elvi Deng APRN-CNP insulin aspart (NovoLOG) SQ correction scale (Adult) 2-12 Units Subcutaneous 3 times a day Elvi Deng APRN-CNP hydrALAZINE (APRESOLINE) injection solution 10 mg 10 mg IV Every 4 hours prn Elvi Deng APRN-CNP sodium chloride 0.9% flush (adult) 10 mL 10 mL IV 2 times a day and prn Luis Hook MD 10 mL at 06/30/202025 bisacodyl (DULCOLAX) suppository 10 mg 10 mg Rectal 1 time a day prn Luis Hook MD ondansetron (ZOFRAN) injection solution 4 mg 4 mg IV Every 4 hours prn Luis Hook MD acetaminophen (TYLENOL) tablet 650 mg 650 mg Oral Every 6 hours prn Luis Hook MD 650 mg at 07/01/20 0437 Or acetaminophen (TYLENOL) suppository 650 mg 650 mg Rectal Every 6 hours prn Luis Hook MD labetalol (NORMODYNE;TRANDATE) IV solution 10-40 mg 10-40 mg IV Every 10 minutes prn Luis Hook MD dextrose 50% IV solution 25-50 mL 25-50 mL IV PRN per parameter Herbert Murrieta MD no anticoagulants/antiplatelets reminder 1 each Does not apply Upon permission Luis Hook MD Allergies No Known Allergies Physical Exam No flowsheet data found. General Exam: Vital Signs - BP 132/79 Pulse 73 Temp 97.3 F (36.3 C) Resp 14 Ht 1.651 m (5' 5") Wt 73.2 kg(161 lb 6 oz) SpO2 97% BMI 26.85 kg/m2|| Constitutional - normal general appearance, well-groomed and well-nourished Neurologic Exam: NIH Stroke Scale 1a. Level of Consciousness (LOC) General 0=Alert 1b. LOC Questions: Ask patient: What month is it? How old are you? 0=Answers both correctly 1c. LOC Commands: Ask patient: Open and close your eyes. Squeeze and release your hand. 0=Obeys both correctly 2. Best Gaze (Only horizontal eye movements are tested) 0=Normal 3. Visual Field Testin=No visual loss 4. Facial Paresis: Ask patient to show teeth, raise eyebrows, and close eyes tightly. (by words orpantomime) 0=Normal symmetrical movement 5a. Motor Functions Arm Right: 1=Drift but the limb does not touch the bed 5b. Motor Functions Arm Left: 0=Normal - able to hold arm at 45 degrees for 10 seconds without drift 6a. Motor Functions Leg Right: 0=Normal - holds leg at 30 degrees for 5 seconds 6b. Motor Functions Leg Left: 0=Normal - holds leg at 30 degrees for 5 seconds 7. Limb Ataxia: Gnkmff-jccj-gyiwzh and heel-gaytan (score only if out of proportion to weakness) 0=No ataxia 8. Sensory: Pinprick to test arms, legs, trunk and face. Compare side to side. Use noxious stimulus in obtunded or aphasic patient. Do not test on hands or feet. 1=Mild to moderate decrease in sensation 9. Best Language: Describe picture, name items, read sentence. 0=No aphasia 10. Dysarthria: Read several words. 0=Normal articulation 11. Extinction and Inattention: 0=Normal attention to both sides for vision sensation and attention TOTAL NIHSS = 2 Labs/Imaging MIKAYLA-pending MRI pending CTA- no LVO or FLS LDL- unable to assess due to TGs Procedures Valencia Jung MD an Elvi Jacome, [employer] - 07/01/2020 7:54 AM CDT Neuro critical care progress note Chief Complaint: Right hemiparesis and right natalie-anesthesia status post TPA History of present illness: Valencia Mora is a 60yr male past medical history significant for hyperlipidemia, hypertension, and diabetes type 2, who was transferred from an outside hospital with complaints of right-sided weakness and numbness status post TPA. Last known well at 1045 on 06/30/2020. TPA bolus given at 1310 from outside hospital. Upon arrival to [facility], patient was hypertensive with systolic blood pressure in the 190s. Patient received labetalol and systolic blood pressure was less than 180. When patient was personally seen andexamined, he continued to have right sided natalie-anesthesia and right upper extremity drift. Blood pressure was 165/90. And oxygenating well on room air. Awake and alert oriented 4 following commands CTA head and neck was obtained which did not show any obvious large vessel occlusion. Interval history: Patient seen and evaluated this morning. Hemodynamically stable, no acute events overnight, oxygenating well on room air. Patient is alert and oriented 4. Continue 6 complain of right natalie-anesthesia however does state that this seems to be improving from yesterday. Mild right upper extremity drift. 24 hour post TPA brain MRI scheduled for later today. Past Medical History: Diagnosis Date Diabetes mellitus (HCC) Hyperlipidemia Hypertension Stroke (cerebrum) (HCC) 06/30/2020 Past Surgical History: Procedure Laterality Date COLONOSCOPY N/A 10/29/2019 Procedure: COLONOSCOPY;; Surgeon: Romeo Mckee MD [facility] RETRO CAROTID Prior to Admission medications Medication Sig Start Date End Date Taking? Authorizing Provider vitamin D3, cholecalciferol, 400 units tablet Take 400 Units by mouth 2 times a day Provider, Abstract aspirin 81 mg enteric coated tablet Take 81 mg by mouth 1 time per day Provider, Abstract atorvaSTATin (LIPITOR) 40 mg tablet Take 20 mg by mouth 1 time per day 08/27/19 Debora Haddad, [employer]-RESIDENT PHYSICIAN lisinopril (PRINIVIL, ZESTRIL) 10 mg tablet Take 10 mg by mouth 1 time per day 09/11/19 Jaimee Dunham APRN,FNPC metFORMIN (GLUCOPHAGE) 1000 MG tablet Take 1,000 mg by mouth 2 times a day 08/27/19 Jesus Haddad, SEUN-RESIDENT PHYSICIAN metoprolol tartrate (LOPRESSOR) 50 mg tablet Take 50 mg by mouth 2 times a day 08/31/19 Debora Haddad, [employer]RESIDENT PHYSICIAN No Known Allergies Social History Tobacco Use Smoking status: Former Smoker Packs/day: 1.50 Types: Cigarettes, Pipe Last attempt to quit: 01/25/2008 Years since quittin.4 Smokeless tobacco: Former User Tobacco comment: Cuurent Pipe Substance Use Topics Alcohol use: Yes Alcohol/week: 21.0 standard drinks Types: 21 Cans of beer per week Frequency: 4 or more times a week Drinks per session: 3 or 4 Binge frequency: Less than monthly Comment: 3 Beers History reviewed. No pertinent family history. Review of Systems: Pertinent items are noted in HPI PHYSICAL EXAMINATION: Temp: 97.3 F (36.3 C) BP: 132/79 Pulse: 73 O2 Device: Room Air Resp: 14 Pain Ratin (out of 10) Weight: 73.2 kg (161 lb 6 oz) SpO2: 97 % Maximum Temperatures (last 24 hours) Temperature Maximum Max Temp 99.2 F (37.3 C) Physical Exam Constitutional: He is well-developed, well-nourished, and in no distress. HENT: Head: Normocephalic and atraumatic. Eyes: Pupils are equal, round, and reactive to light. Conjunctivae and EOM are normal. Neck: Normal range of motion. Neck supple. Cardiovascular: Normal rate, regular rhythm and normal heart sounds. Pulmonary/Chest: Effort normal and breath sounds normal. Abdominal: Soft. Bowel sounds are normal. Skin: Skin is warm and dry. Nursing note and vitals reviewed. Neuro: Alert, oriented 4. Speech clear logical and fluent. Pupils PERRL. EOM intact. Visual alonzo intact. Strength 5 out of 5 in all 4 extremities. Right hemianesthesia, improving. Mild right upper extremity drift. LABS: Lab Results Component Value Date WBC 6.8 07/01/2020 RBC 4.43 07/01/2020 HEMOGLOBIN 13.2 (L) 07/01/2020 HEMATOCRIT 39.2 (L) 07/01/2020 MCV 88.5 07/01/2020 MCH 29.8 07/01/2020 MCHC 33.7 07/01/2020 PLTCOUNT 179 07/01/2020 NEUTROPCT 77.0 09/15/2019 LYMPHSPCT 9.4 09/15/2019 MONOSPCT 12.0 09/15/2019 EOSPCT 0.6 09/15/2019 BASOPHILPCT 0.2 09/15/2019 Lab Results Component Value Date GLUCOSE 112 (H) 07/01/2020 BUN 16 07/01/2020 CREATSERUM 0.78 (L) 07/01/2020 BCRATIO 20.5 07/01/2020 NA 141 07/01/2020 POTASSIUM 4.2 07/01/2020 CL 105 07/01/2020 CO2 26 07/01/2020 CA 8.9 07/01/2020 Relevant diagnostic, laboratory and radiological studies have been reviewed in the Electronic Medical Record. Current Medications: sodium chloride 0.9% flush (adult) 10 mL 10 mL IV 2 times a day and prn 10 mL at 06/30/202025 bisacodyl (DULCOLAX) suppository 10 mg 10 mg Rectal 1 time a day prn ondansetron (ZOFRAN) injection solution 4 mg 4 mg IV Every 4 hours prn haloperidol lactate (HALDOL) injection solution 2.5 mg 2.5 mg IV Every 6 hours prn acetaminophen (TYLENOL) tablet 650 mg 650 mg Oral Every 6 hours prn 650 mg at 07/01/20 0437 Or acetaminophen (TYLENOL) suppository 650 mg 650 mg Rectal Every 6 hours prn labetalol (NORMODYNE;TRANDATE) IV solution 10-40 mg 10-40 mg IV Every 10 minutes prn sodium chloride 0.9% IV solution IV Continuous dextrose 50% IV solution 25-50 mL 25-50 mL IV PRN per parameter insulin aspart (NovoLOG) SQ CCS correction scale 5-20 Units Subcutaneous Every 4 hours atorvaSTATin (LIPITOR) tablet 80 mg 80 mg Oral Daily no anticoagulants/antiplatelets reminder 1 each Does not apply Upon permission PROBLEM LIST: 1. Right-sided weakness/numbness clinical presentation could be secondary to ischemic stroke status post TPA 2. History of hypertension 3. History of diabetes type 2 4. History of hyperlipidemia ASSESSMENT & PLAN Hemodynamics: Hemodynamically stable, no inotropic support Keep SPB<180/105 for first 24 hours post TPA, then permissive hypertension up to 220/120 with reduction of BP by 15% each day. When necessary labetalol and hydralazine available Cardiovascular: Normal sinus rhythm, no cardiac issues -serum troponin negative. 2-D echo to evaluate for wall motion abnormality/ejection fraction/rule out thrombus - ordered History of hyperlipidemia, LDL unmeasurable. Continue 80 mg of Lipitor at at bedtime per home regimen Will continue to hold metoprolol and lisinopril for now. Pulmonary: Adequate oxygenation on room air - incentive spirometry as ordered. Keep SPO2 greater than 92% Infectious Diseases: Afebrile with no leukocytosis. No indication for antibiotics Renal/Fluids/Elecrlytes and Metabolic: Stable kidney functions, will monitor urine output, electrolytes and kidney functions Replace electrolytes per critical care protocol Hematology: Stable hemoglobin, hematocrit and platelets, normal coagulation profile GI: No active issues - on regular diet, tolerating well. COPY AND PRINT ASSOCIATE: Right-sided weakness/numbness clinical presentation could be secondary to ischemic stroke status post TPA. S/P TPA we'll hold antiplatelet/anticoagulation for 24 hours. Repeat brain MRI scheduled for later this morning. If no ICH will start on aspirin. Stat CT scan of the head if acute change in neuro status. Closely monitor neuro status while in ICU. Endocrine: Blood sugar is monitored as per critical care protocol -Hgb A1c 5.9. Health Maintenance: No indication for stress ulcer prophylaxis and SCDs for deep venous thrombosis.If no ICH on brain MRI, subcu heparin can be started tonight. PT OT speech consulted Critical care time spent with this patient for evaluation, assessment and management of the above problems is 40 minutes not including procedure time. This patient was discussed with Dr. Murrieta, he agrees with the assessment and plan [facility] Minerva Norton PHARM D - 06/30/2020 9:21 PM CDT06/30/2020 21:21 Patient was seen by pharmacy for medication reconciliation. Home medications have been reconciled and updated on the home medication list to match the patient's home usage. Minerva Norton PharmD, BCCCP documented in this encounter Plan of Treatment Name Type Priority Associated Diagnoses Order S chedule MRI BRAIN WITHOUT Imaging STAT today for 1 Occurrences CONTRAST starting 2019 until 0 COMPLETE BLOOD COUNT Lab Routine Early A M draw for labs WITHOUT DIFFERENTIAL for 3 D ays starting 07/01/2020 unti l 07/03/2020, 2 c ompleted PROTIME/INR Lab Routine Early AM draw f or labs until discontin ued starting 2019, 2 completed Name Type Priority Associated Diagnoses Order S chedule CLINIC REFERRAL Referral Routine Cerebrovascular accident Ordered: NEUROVASCULAR ONE CHART (CVA), unspecifie d 07/02/2020 mechanism (HCC) CLINIC REFERRAL Referral Routine Cardiomyopathy, Ordered: CARDIOLOGY ONE CHART unspecified type (HC C) 07/02/2020 CLINIC REFERRAL SLEEP Referral Routine Cerebrovascular acc ident Ordered: MEDICINE ONE CHART (CVA), unspecified mechanism (HCC) documented as of this encounter Procedures Procedure Name Priority Date/Time Associated Comments Diagnosis GLUCOSE BY METER, Routine 07/02/2020 11:34 Result s for this POCT AM CDT procedure are i n the results section. PROTIME/INR Routine 07/02/2020 6:41 Results for this AM CDT procedure are i n the results section. COMPLETE BLOOD COUNT Routine 07/02/2020 6:41 Res ults for this WITHOUT DIFFERENTIAL AM CDT procedu re are in the results section. BRAIN NATRIURETIC Routine 07/02/2020 6:41 Result s for this PEPTIDE AM CDT procedure are i n the results section. GLUCOSE BY METER, Routine 07/02/2020 5:12 Result s for this POCT AM CDT procedure are i n the results section. GLUCOSE BY METER, Routine 07/01/2020 8:13 Result s for this POCT PM CDT procedure are i n the results section. GLUCOSE BY METER, Routine 07/01/2020 5:11 Result s for this POCT PM CDT procedure are i n the results section. ECHO ADULT COMPLETE Routine 07/01/2020 3:44 Resu lts for this PM CDT procedure are i n the results section. MRI BRAIN WITHOUT Routine 07/01/2020 1:13 Result s for this CONTRAST PM CDT procedure are i n the results section. GLUCOSE BY METER, Routine 07/01/2020 11:46 Result s for this POCT AM CDT procedure are i n the results section. GLUCOSE BY METER, Routine 07/01/2020 9:05 Result s for this POCT AM CDT procedure are i n the results section. LIPID PANEL Routine 07/01/2020 4:29 Results for this AM CDT procedure are i n the results section. PROTIME/INR Routine 07/01/2020 4:29 Results for this AM CDT procedure are i n the results section. COMPLETE BLOOD COUNT Routine 07/01/2020 4:29 Res ults for this WITHOUT DIFFERENTIAL AM CDT procedu re are in the results section. TROPONIN I Routine 07/01/2020 4:29 Results for this AM CDT procedure are i n the results section. BASIC METABOLIC PANEL Routine 07/01/2020 4:29 Re sults for this AM CDT procedure are i n the results section. GLUCOSE BY METER, Routine 07/01/2020 4:27 Result s for this POCT AM CDT procedure are i n the results section. GLUCOSE BY METER, Routine 06/30/2020 8:22 Result s for this POCT PM CDT procedure are i n the results section. EKG STAT 06/30/2020 4:32 Results for this PM CDT procedure are i n the results section. PTT STAT 06/30/2020 4:24 Results for this PM CDT procedure are i n the results section. PROTIME/INR STAT 06/30/2020 4:24 Results for this PM CDT procedure are i n the results section. CTA NECK STAT 06/30/2020 4:20 Results for this PM CDT procedure are i n the results section. COMPLETE BLOOD COUNT STAT 06/30/2020 4:18 Res ults for this WITHOUT DIFFERENTIAL PM CDT procedu re are in the results section. GLYCATED HEMOGLOBIN STAT 06/30/2020 4:18 Resu lts for this PM CDT procedure are i n the results section. CTA HEAD STAT 06/30/2020 4:17 Results for this PM CDT procedure are i n the results section. TROPONIN I STAT 06/30/2020 4:17 Results for this PM CDT procedure are i n the results section. BASIC METABOLIC PANEL STAT 06/30/2020 4:17 Re sults for this PM CDT procedure are i n the results section. GLUCOSE BY METER, STAT 06/30/2020 3:56 Result s for this POCT PM CDT procedure are i n the results section. documented in this encounter Results GLUCOSE BY METER, POCT (07/02/2020 11:34 AM CDT) [facility] Glucose POC 154 (H) 70 - 99 mg/dL [facility] O POINT OF CARE TESTING Specimen Blood Performing Organization Address City/[facility]/Zipcode Phone Number [facility] POINT OF [address] [place] [address] CARE TESTING BRAIN NATRIURETIC PEPTIDE (07/02/2020 6:41 AM CDT) [facility] BNP 71 0 - 100 pg/mL [place] [address] CLINIC Specimen Blood Performing Organization Address City/[facility]/Zipcode Phone Number [place] [address] [place] [address] PROTIME/INR (07/02/2020 6:41 AM CDT) [facility] Protime 13.7 12.0 - 14.[address] INR 1.1 (L) 2.0 - 3.[address] Specimen Blood Narrative Performed At Normal INR reference range (patients not on oral antic oagulants) [address] 0.9-1.1. INR Standard Intensity = (2.0 - 3.0) INR Higher Intensity = (2.5 - 3.5) Performing Organization Address [facility] Phone Number [address] [place] [address] [place] [address] COMPLETE BLOOD COUNT WITHOUT DIFFERENTIAL (07/02/2020 6:41 AM CDT) [facility] WBC 5.4 4.0 - 11.0 K/uL [address] RBC 4.50 4.40 - 5.80 M/uL [address] Hemoglobin 13.5 13.5 - 17.5 g/dL [address] Hematocrit 40.0 40.0 - 50.0 % [address] MCV 88.9 80.0 - 98.[address] MCH 30.0 25.5 - 34.[address] MCHC 33.8 31.5 - 36.5 g/dL [address] RDW-CV 12.7 11.5 - 15.5 % [address] RDW-SD 41.4 35.5 - 50.[address] Platelet Count 168 140 - 400 K/uL [address] MPV 8.8 8.5 - 12.[address] Specimen Blood Performing Organization Address [facility] Phone Number [place] [address] [facility] [place] [address], [place] [address] GLUCOSE BY METER, POCT (07/02/2020 5:12 AM CDT) [facility] Glucose POC 123 (H) 70 - 99 mg/dL [facility] O POINT OF CARE TESTING Specimen Blood Performing Organization Address [facility] Phone Number [facility] POINT OF [address] [place] [phone] CARE TESTING GLUCOSE BY METER, POCT (07/01/2020 8:13 PM CDT) Pathologist Sig nature Glucose POC 174 (H) 70 - 99 mg/dL [facility] O POINT OF CARE TESTING Specimen Blood Performing Organization Address [facility] Phone Number [facility] POINT OF [address] [place] [phone] CARE TESTING GLUCOSE BY METER, POCT (07/01/2020 5:11 PM CDT) Pathologist Sig nature Glucose POC 108 (H) 70 - 99 mg/dL [facility] O POINT OF CARE TESTING Specimen Blood Performing Organization Address [facility] Phone Number [facility] POINT OF [address], [place] [address] CARE TESTING ECHO ADULT COMPLETE (07/01/2020 3:44 PM CDT) Specimen Narrative Performed At This result has an attachment that is no t available. [facility] Patient: VALENCIA MORA MR#: [id number] Exam Date: 07/01/[address] [id number] BP: 175/101 mmHg HR: 91 bpm : 1960 Exam Location: Bedside Height: 65.00 "(165.1 cm) Age: 60 year(s) Patient Room: [facility] Weight: 161 lbs.(73.03 kg) Gender: Male Patient Status: Inpatient BSA: 1.8 m2 Artificial Candy Maker: ELDA Stephenson RDCS (,FE) Reading Physician: DAVID TORRES MD [facility] Ordering Physician: LUIS HOOK MD Manager Access Barrel Coater: DAYANARA STANLEY Procedure Indication(s): Stroke Examination: TTE Complete 2D(m-mode), Complete Spectral Doppler, Color Doppler,Agitated saline Clinical History Comment: Hx of stents (per patient) Conclusions Left Ventricle: Dilated left ventricle. Mildly reduced l eft ventricular systolic function. The ejection fraction is visually estimated to be 40%. The mid anteroseptal, mid inferolateral, mid anterolateral and apical lateral wall segments are hypokinetic. IVS: There is sigmoid septal appearance. IAS: No evidence of an atrial shunt by agitated saline or c olor doppler. Comparison Study Comparison Study: No previous echo was available for c omparison Findings Left Ventricle: Dilated left ventricle. Normal left vent ricular wall thickness. Mildly reduced left ventricular systolic function. The ejection fraction is visually estimated to be 40% . The mid anteroseptal, mid inferolateral, mid anterolateral and apical lateral wall segments are hypokinetic. Grade 1 left ventricular lian stolic dysfunction. IVS: There is sigmoid septal appearance. Left Atrium: Normal left atrial size. Aortic Valve: The aortic valve is tricuspid. Mild aort ic cuspal thickening. Normal aortic cuspal mobility. Trivial aortic regurgitation. No aortic stenosis. Transaortic velocity is within the normal ra nge. Aorta: The sinus of valsalva is normal in size measuring 35.0 mm. The ascending aorta is normal in size measuring 33.0 mm. Mitral Valve: Mild mitral leaflet thickening. Trivial mitral regurgitation. No mitral stenosis. IAS: The atrial septum is thickened. No evide nce of an atrial shunt by agitated saline or color doppler. Right Ventricle: Normal right ventricular size. Normal ri ght ventricular systolic function. Normal right ventricular wall thickness. Pulmonary Artery: The tricuspid jet envelope definition is inadequate for estimation of RV systolic pressure. Pulmonary Vein: Normal pulmonary venous flow. Right Atrium: Normal right atrial size by visual assessment. Tricuspid Valve: Normal tricuspid valve structure. Trivial tricuspid re gurgitation. Pulmonic Valve: Normal pulmonary valve structure. Trivia l pulmonary regurgitation. No pulmonary stenosis. Transpulmonic velocity is within the normal range. IVC: Dilated IVC with normal respirophasic changes. Pericardium: No significant pericardial effusion. The re is pericardial fat. No pleural effusion. Measurements Left Ventricle Aortic Valve Label Value Normal Value Label Value Normal Value LVDd, 2D 48.3 mm LVOT Vmax 91 cm/s LVDs, 2D 38.8 mm AV Vmax 122 cm/s IVSd, 2D 9.3 mm LVOTd 25 mm LVPWd, 2D 8.4 mm LVOT VTI 18.5 cm FS, 2D 19.67 % LVOT PGmax 3 mmHg LVEDV, 2D 109 ml AV Vmean 80 cm/s LVESV, 2D 65 ml AV VTI 22.7 cm LVEDVI, 2D 60.6 ml/m 2 AV PGmax 6 mmHg LVESVI, 2D 36.1 ml/m 2 AV PGmean 4 mmHg Stroke Index 47.78 KOFI (Vmax) 3.9 cm-sq ml/m-sq AV Vmax, Caliper 114 cm/s Cardiac Output 7.83 L/min Obstructive Index 0.75 Cardiac Index 4.35 (Vmax) L/min/m-sq KOFI (VTI) 4 cm-sq Left Atrium Obstruction Index 0.81 Label Value Normal Value (VTI) LADs Long. 48 mm Mitral Valve LA Volume Index 25.7 ml/m-sq Label Value Normal Value LADs, MM 45 mm MV E Vmax 48 cm/s LA/AO Ratio, MM 1.32 MV A Vm ax 80 cm/s Aorta MV E/A 0.6 Label Value Normal Value MV E/E' lateral 8.9 Ao Asc 33 mm MV E/E' septal 12.2 Ao Sinus, MM 34 mm MV Dec Time 197 ms Ao Sinus, 2D 35 mm MV E' septal 3.9 cm/s Great Vessels MV PHT 0.06 s Label Value Normal Value MVA PHT 3.9 cm-sq PVein S 70 cm/s MV E' lateral 5.4 cm/s PVein D 38 cm/s Tricuspid Valve S/D Ratio 1.8 Label Value Normal Value Heart Rate RA Pressure 8 mmHg Label Value Normal Value Pulmonic Valve Heart Rate 91 bpm Label Value Normal Value PV Vmax 103 cm/s PV PGmax 4 mmHg Electronically signed by DAVID TORRES MD [facility] on 06/14 at 06:52 PM Wall Motion Scores -1 - Not Scored, 0 - Unknown, 1 - Normal or hyperkinesia, 2 - Hypokinesia, 3 - Akinesia, 4 - Dyskinesia, 5 - Aneurysm Procedure Note Interface, Inc Results No Pull Forward - 07/01/2020 6:54 PM CDT Patient: VALENCIA MORA MR#: [id number] Exam Date: 07/01/2020 Transthoracic Echocardiogram [facility] [address] [place] [address] BP: 175/101 mmHg HR: 91 bpm : 1960 Exa m Location: Bedside Height: 65.00 "(165.1 cm) Age: 60 year(s) Pat ient Room: [facility] Weight: 161 lbs.(73.03 kg) Gender: Male Pat ient Status: Inpatient BSA: 1.8 m2 Artificial Candy Maker: MOJGAN BRANDT RDCS (PE,FE) Reading Physician: DAVID SANCHEZ MD [facility] Ordering Physician: LUIS LYON MD Manager Access Barrel Coater: DAYANARA BANDA Procedure Indication(s): Stroke Examination: TTE Co mplete 2D(m-mode), Complete Spectral Doppler, Color Doppler,Agitated saline Clinical History Comment: Hx of stents (per patient) Conclusions Left Ventricle: Dilated left ventricle. Mildly reduced l eft ventricular systolic function. The ejection fraction is visually estimated to be 40%. The mid anteroseptal, mid inferolateral, mid anterolateral and apical lateral wall segments are hypokinetic. IVS: There is sigmoid septal appearance. IAS: No evidence of an atrial shunt by agitat ed saline or color doppler. Comparison Study Comparison Study: No previous echo was a vailable for comparison Findings Left Ventricle: Dilated left ventricle. Normal left vent ricular wall thickness. Mildly reduced left ventricular systolic function. The ejection fraction is visually estimated to be 40% . The mid anteroseptal, mid inferolateral, mid anterolateral and apical lateral wall segments are hypokinetic. Grade 1 left v entricular diastolic dysfunction. IVS: There is sigmoid septal appearance. Left Atrium: Normal left atrial size. Aortic Valve: The aortic valve is tricuspid. Mild aort ic cuspal thickening. Normal aortic cuspal mobility. Trivial aortic regurgitation. No aortic stenosis. Transaortic velocity is within the normal range. Aorta: The sinus of valsalva is normal in size measuring 35.0 mm. The ascending aorta is normal in size measuring 33.0 mm. Mitral Valve: Mild mitral leaflet thickening. Trivial mitral regurgitation. No mitral stenosis. IAS: The atrial septum is thickened. No evide nce of an atrial shunt by agitated saline or color doppler. Right Ventricle: Normal right ventricular size. Normal ri ght ventricular systolic function. Normal right ventricular wall thickness. Pulmonary Artery: The tricuspid jet envelope definition is inadequate for estimation of RV systolic pressure. Pulmonary Vein: Normal pulmonary venous flow. Right Atrium: Normal right atrial size by visual asses sment. Tricuspid Valve: Normal tricuspid valve structure. Trivia l tricuspid regurgitation. Pulmonic Valve: Normal pulmonary valve structure. Trivia l pulmonary regurgitation. No pulmonary stenosis. Transpulmonic velocity is within the normal range. IVC: Dilated IVC with normal respirophasic ch anges. Pericardium: No significant pericardial effusion. The re is pericardial fat. No pleural effusion. Measurements Left Ventricle Aortic Valve Label Value Norm al Value Label Value Normal Value LVDd, 2D 48.3 mm LVOT Vmax 91 cm/s LVDs, 2D 38.8 mm AV Vmax 122 cm/s IVSd, 2D 9.3 mm LVOTd 25 mm LVPWd, 2D 8.4 mm LVOT VTI 18.5 cm FS, 2D 19.67 % LVOT PGmax 3 mmHg LVEDV, 2D 109 ml AV Vmean 80 cm/s LVESV, 2D 65 ml AV VTI 22.7 cm LVEDVI, 2D 60.6 ml/m2 AV PGmax 6 mmHg LVESVI, 2D 36.1 ml/m2 AV PGmean 4 mmHg Stroke Index 47.78 KOFI (Vmax) 3.9 cm-sq ml/m-sq AV Vmax, Caliper 114 cm/s Cardiac Output 7.83 L/min Obstructive Index 0.75 Cardiac Index 4.35 (Vmax) L/min/m-sq KOFI (VTI) 4 cm-sq Left Atrium Obstruction Index 0.81 Label Value Norm al Value (VTI) LADs Long. 48 mm Mitral Valve LA Volume Index 25.7 ml/m-sq Label Value Normal Value LADs, MM 45 mm MV E Vmax 48 cm/s LA/AO Ratio, MM 1.32 MV A Vmax 80 cm/s Aorta MV E/A 0.6 Label Value Norm al Value MV E/E' lateral 8.9 Ao Asc 33 mm MV E/E' septal 12.2 Ao Sinus, MM 34 mm MV Dec Time 197 ms Ao Sinus, 2D 35 mm MV E' septal 3.9 cm/s Great Vessels MV PHT 0.06 s Label Value Norm al Value MVA PHT 3.9 cm-sq PVein S 70 cm/s MV E' lateral 5.4 cm/s PVein D 38 cm/s Tricuspid Valve S/D Ratio 1.8 Label Value Normal Value Heart Rate RA Pressure 8 mmHg Label Value Norm al Value Pulmonic Valve Heart Rate 91 bpm Label Value Normal Janina ue PV Vmax 103 cm/s PV PGmax 4 mmHg Wall Motion Scores -1 - Not Scored, 0 - Unknown, 1 - Normal or hyperkinesia, 2 - Hypokinesia, 3 - Akinesia, 4 - Dyskinesia, 5 - Aneurysm Performing Organization Address City/State/Zipcode Phone Number [facility] [place], [place] MRI BRAIN WITHOUT CONTRAST (07/01/2020 1:13 PM CDT) Specimen Narrative Performed At [facility] Patient Name: VALENCIA MORA Date of : 1960 Procedure: MRI BRAIN WITHOUT CONTRAST Date of Service: 07/01/2020 EXAM: MRI BRAIN WITHOUT CONTRAST INDICATION: stroke s/p tpa 24 hour study TECHNIQUE: MRI of the brain performed wi thout and following IV contrast. COMPARISON(S): CT dated 06/30/2020 FINDINGS: Diffusion-weighted images demonstrate small focal area of hyperintensity within the left thalamus with corresponding low signal intensity on ADC map and hyperintense signal on FLAIR weighted imaging. Findings are consistent with an acute infarct. No evidence for unde rlying hemorrhagic transformation. The ventricles are normal in size and position without evidence of hydrocephalus. There are scattered T2 hype rintensities of the cerebral white matter, most consistent with chroni c small vessel disease. There is no abnormal intraparen chymal enhancement. On the sagittal images, the midline markers are unrema rkable. The corpus callosum is normal in shape and signal intensity. The posterior fossa is unremarkable. The pituitary and sella are normal. The brainstem and craniocervical junction are unremarkable . The visualized portions of the orbits, mastoids, and p aranasal sinuses are normal. 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 Finalized by: Bakari Nation MD on 2019 1:31 PM CDT Patient/Procedure Information: [facility]INA MRN/AMANDO: [id number] Order Number: [id number] Accession Number: [id number] Ordering Provider: LUIS HOOK Authorizing Provider: LUIS HOOK Procedure Note Interface, Radiantres - 07/01/2020 1:33 PM CDT Patient Name: VALENCIA MORA Date of : 1960 Procedure: MRI BRAIN WITHOUT CONTRAST Date of Service: 07/01/2020 EXAM: MRI BRAIN WITHOUT CONTRAST INDICATION: stroke s/p tpa 24 hour study TECHNIQUE: MRI of the brain performed wi thout and following IV contrast. COMPARISON(S): CT dated 06/30/2020 FINDINGS: Diffusion-weighted images demonstrate sm all focal area of hyperintensity within the left thalamus with corresponding low signal intensity on ADC map and hyperintense signal on FLAIR weighted imaging. Findings are consistent with an acute infarct. No rosalio dence for underlying hemorrhagic transformation. The ventricles are normal in size and position without evidence of hydrocephalus. There are scattered T2 hyperintensities of the cerebral white matter, most consistent w ith chronic small vessel disease. There is no abnormal intraparenchymal enhancement. On the sagittal images, the midline romeo ers are unremarkable. The corpus callosum is normal in shape and signal intensity. The posterior fossa is unremarkable. The pituitary and sella are normal. The brainstem and craniocervical junction are unremarkable . The visualized portions of the orbits, m astoids, and paranasal sinuses are normal. 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 Finalized by: Bakari Nation MD on 2019 1:31 PM CDT Patient/Procedure Information: [facility] MRN/AMANDO: [id number] Order Number: [id number] Accession Number: [id number] Ordering Provider: LUIS HOOK Authorizing Provider: LUIS HOOK Performing Organization Address [facility] Phone Number [id number] GLUCOSE BY METER, POCT (07/01/2020 11:46 AM CDT) Pathologist Sig nature Glucose POC 117 (H) 70 - 99 mg/dL [facility] POINT OF CARE TESTING Specimen Blood Performing Organization Address [facility] Cent[facility]ode Phone Number [facility] POINT OF [address] [place] [address], [place] [address] CARE TESTING GLUCOSE BY METER, POCT (07/01/2020 9:05 AM CDT) Pathologist Sig nature Glucose POC 139 (H) 70 - 99 mg/dL [facility] POINT OF CARE TESTING Specimen Blood Performing Organization Address [facility] Phone Number [facility] POINT OF [address] [place] [address], [place] [address] CARE TESTING TROPONIN I (07/01/2020 4:29 AM CDT) Pathologist Sig nature Troponin I 0.013 0.000 - 0.028 ng/mL [facility] CLIN IC Specimen Blood Performing Organization Address [facility] Phone Number [facility] [address] [place] [address] BASIC METABOLIC PANEL (07/01/2020 4:29 AM CDT) [facility] Glucose 112 (H) 70 - 100 mg/dL [address] BUN 16 6 - 22 mg/dL [address] Creatinine 0.78 (L) 0.80 - 1.[address] mg/dL BUN/Creatinine Ratio 20.5 10.0 - 25.[address] Sodium 141 135 - 145 meq/L [address] Potassium 4.2 3.5 - 5.3 meq/L [address] Chloride 105 99 - 110 meq/L [address] CO2 26 20 - 29 meq/L [address] Anion Gap with K 14 6 - 20 meq/L [address] Calcium 8.9 8.5 - 10.[address] mg/dL Age [address] eGFR Non- >90 >=[address] [place] mL/min/1.73m2 eGFR >90 >=[address] mL/min/1.73m2 Specimen Blood Performing Organization Address [facility] Phone Number [address] [place] [address] PROTIME/INR (07/01/2020 4:29 AM CDT) [facility] Protime 15.4 (H) 12.0 - 14.[address] INR 1.3 (L) 2.0 - 3.[address] Specimen Blood Narrative Performed At Normal INR reference range (patients not on oral antic oagulants) [address] 0.9-1.1. INR Standard Intensity = (2.0 - 3.0) INR Higher Intensity = (2.5 - 3.5) Performing Organization Address [facility] Phone Number [address] [place] [address] COMPLETE BLOOD COUNT WITHOUT DIFFERENTIAL (07/01/2020 4:29 AM CDT) Pathologist Sig nature WBC 6.8 4.0 - 11.0 K/uL [address] RBC 4.43 4.40 - 5.80 M/uL [address] Hemoglobin 13.2 (L) 13.5 - 17.5 g/dL [address] Hematocrit 39.2 (L) 40.0 - 50.0 % [address] MCV 88.5 80.0 - 98.[address] MCH 29.8 25.5 - 34.[address] MCHC 33.7 31.5 - 36.5 g/dL [address] RDW-CV 12.9 11.5 - 15.5 % [address] RDW-SD 41.6 35.5 - 50.[address] Platelet Count 179 140 - 400 K/uL [address] MPV 9.0 8.5 - 12.[address] Specimen Blood Performing Organization Address [facility] Phone Number [address] [place] [address] LIPID PANEL (07/01/2020 4:29 AM CDT) Cholesterol 172 100 - 200 [facility] mg/dL CLINIC Triglyceride 433 (H) 50 - 150 mg/dL [facility] HDL 31 (L) 40 - 80 mg/dL [facility] LDL Comment: LDL invalid [facility] due to Triglyceride CLINIC >400 Specimen Blood Performing Organization Address [facility] Cent[facility]ofl Phone Number [facility] [address] [place], [place] [phone] GLUCOSE BY METER, POCT (07/01/2020 4:27 AM CDT) Pathologist Sig nature Glucose POC 110 (H) 70 - 99 mg/dL [facility] O POINT OF CARE TESTING Specimen Blood Performing Organization Address [facility] Centercode Phone Number [facility] POINT OF [address] [place] [address] CARE TESTING GLUCOSE BY METER, POCT (06/30/2020 8:22 PM CDT) Pathologist Sig nature Glucose POC 91 70 - 99 mg/dL [facility] O POINT OF CARE TESTING Specimen Blood Performing Organization Address [facility] Phone Number [facility] POINT OF [address] [place] [address] CARE TESTING EKG (06/30/2020 4:32 PM CDT) Pathologist Sig nature EKG [facility] Normal sinus rhythm Nonspecific T wave abnormality Abnormal ECG Ventricular Rate: 76 BPM Atrial Rate: 76 BPM P-R Interval: 148 ms QRS Duration: 90 ms Q-T Interval: 378 ms QTc Calculation(Bazett): 425 ms Calculated P Bartlett: 43 degrees Calculated R Bartlett: -10 degrees Calculated T Bartlett: 13 degrees Specimen Narrative Performed At This result has an attachment that is no t available. Performing Organization Address [facility] Phone Number [facility] PTT (06/30/2020 4:24 PM CDT) Pathologist Sig nature APTT 31 24 - 35 secs [place] [address] CLINIC Specimen Blood Performing Organization Address [facility] Phone Number [place] [address] [place] [address] PROTIME/INR (06/30/2020 4:24 PM CDT) Pathologist Sig nature Protime 15.2 (H) 12.0 - 14.[address] INR 1.2 (L) 2.0 - 3.[address] Specimen Blood Narrative Performed At Normal INR reference range (patients not on oral antic oagulants) [address] 0.9-1.1. INR Standard Intensity = (2.0 - 3.0) INR Higher Intensity = (2.5 - 3.5) Performing Organization Address [facility] Phone Number [address] [place] [address] CTA NECK (06/30/2020 4:20 PM CDT) Specimen Narrative Performed At [facility] Patient Name: VALENCIA MORA Date of : 1960 Procedure: CTA NECK Date of Service: 06/30/2020 EXAM: CTA NECK, CTA HEAD INDICATION: stroke code- right sided wea kness TECHNIQUE: 1. CT angiogram of the brain performed without and fol lowing IV contrast administration. MIP and 3D reformations generated and reviewed. 2. CT angiogram of the neck performed following the sa ca IV contrast injection. MIP and 3D reformations gener ated and reviewed. COMPARISON(S): Outside CT dated 0 FINDINGS: Noncontrast head CT: There is no acute intra or extra axial fluid collection. The ventricles are of normal size, shape, and position. No mass effect or midline shift is present. The han-whit e matter differentiation is maintained. CT angiogram brain: There is patent flow demonstrated within intracranial segments of the internal carotid arteries . There are atherosclerotic calcifications of the petrous, caverno us, and supraclinoid ICAs without flow-limiting stenoses. The anterior cerebral arteries are patent. The middle cerebral arteries are patent. The left vertebral artery is dominant. Vertebral arteries are p atent. The basilar artery is unremarkable. The posterior cerebral arterie s are patent. Major dural venous sinuses are unremarka ble. CT angiogram neck: There are mild atherosclerotic calc ifications of the aortic arch. Common carotid arteries are patent. There are mild atherosclerotic changes of the distal common carotid a rteries without flow-limiting stenoses. There are atheromatous changes of the carotid bifurcations, left greater than right, without luminal narrowing. Cervical segments of the internal carotid arteries are mildly tortuous with widely patent flow. Left vertebral artery is jose nant. Vertebral arteries demonstrate widely patent flow along their ce rvical course. Upper lungs are clear. The airway is maintained. There are mild degenerative changes of the cervical spi ne. IMPRESSION: 1. No acute intracranial process. Findings of noncontr ast exam conveyed to Dr. Hook on 06/30/2020 4:00 PM CDT . 2. No large vessel occlusion or flow-limiting stenosis of either the intracranial or cervical vasculature. Finalized by: Bakari Nation MD on 2019 4:26 PM CDT Patient/Procedure Information: [facility] MRN/AMANDO: [id number] Order Number: [id number] Accession Number: [id number] Ordering Provider: LUIS HOOK Authorizing Provider: LUIS HOOK Procedure Note Interface, Radiantres - 06/30/2020 4:28 PM CDT Patient Name: VALENCIA MORA Date of : 1960 Procedure: CTA NECK Date of Service: 06/30/2020 EXAM: CTA NECK, CTA HEAD INDICATION: stroke code- right sided welisy wright TECHNIQUE: 1. CT angiogram of the brain performed w ithout and following IV contrast administration. MIP and 3D reformations generated and reviewed. 2. CT angiogram of the neck performed fo llowing the same IV contrast injection. MIP and 3D reformations generated and reviewed. COMPARISON(S): Outside CT dated 0 FINDINGS: Noncontrast head CT: There is no acute i ntra or extra axial fluid collection. The ventricles are of normal size, shape, and position. No mass effect or midline shift is present. The han-white matter differentiation is maintained. CT angiogram brain: There is patent flow demonstrated within intracranial segments of the internal carotid arteries. There are atherosclerotic calcifications of the petrous, cavernous, and supraclinoid ICAs without flow-limiting stenoses. The anterior cer ebral arteries are patent. The middle cerebral arteries are patent. The left vertebral artery is dominant. Vertebral arteries are patent. The basilar artery is unremarkable. The posterior cerebral art eries are patent. Major dural venous sinuses are unremarkable. CT angiogram neck: There are mild athero sclerotic calcifications of the aortic arch. Common carotid arteries are patent. There are mild atherosclerotic changes of the distal common carotid arteries without flow-limiting stenoses. There are athero matous changes of the carotid bifurcations, left greater than right, without luminal narrowing. Cervical segments of the internal carotid arteries are mildly tortuous with widely patent flow. Left vertebral artery is do minant. Vertebral arteries demonstrate widely patent flow along their cervical course. Upper lungs are clear. The airway is maintained. There are mild degenerative changes of the cervical spine. IMPRESSION: 1. No acute intracranial process. Findin gs of noncontrast exam conveyed to Dr. Hoko on 06/30/2020 4:00 PM CDT. 2. No large vessel occlusion or flow-hernandez iting stenosis of either the intracranial or cervical vasculature. Finalized by: Bakari Nation MD on 2019 4:26 PM CDT Patient/Procedure Information: [facility] MRN/AMANDO: [id number] Order Number: [id number] Accession Number: [id number] Ordering Provider: LUIS HOOK Authorizing Provider: LUIS HOOK Performing Organization Address [facility] Phone Number [id number] GLYCATED HEMOGLOBIN (06/30/2020 4:18 PM CDT) Pathologist Sig nature Hgb A1C 5.9 (H) <5.7 % [facility] Estimated Average 123 mg/dL [facility] Specimen Blood Narrative Performed At ADA Interpretive Guidelines [facility] When Using HbA1c for Diagnosis Prediabetes 5.7 - 6.4% Diabetes >= 6.5% When Using HbA1c for Monitoring a Person Known to Have Diabetes, < 7% is a reasonable goal for many nonpregna nt adults, < 7.5% should be considered in children and adolescents (<19 years) with type 1 diab etes. ADA Standards of Medical Care in Diabete s - 2018 Performing Organization Address [facility] Phone Number [facility] [address] [place] [address] [place] [address] [phone] COMPLETE BLOOD COUNT WITHOUT DIFFERENTIAL (06/30/2020 4:18 PM CDT) Pathologist [facility] WBC 8.1 4.0 - 11.0 K/uL [place] [address] [facility] RBC 4.60 4.40 - 5.80 M/uL [place] [address] [facility] Hemoglobin 13.6 13.5 - 17.5 g/dL [address] Hematocrit 40.1 40.0 - 50.0 % [address] MCV 87.2 80.0 - 98.[address] MCH 29.6 25.5 - 34.[address] MCHC 33.9 31.5 - 36.5 g/dL [address] RDW-CV 12.7 11.5 - 15.5 % [address] RDW-SD 39.9 35.5 - 50.[address] Platelet Count 189 140 - 400 K/uL [address] MPV 8.6 8.5 - 12.[address] Specimen Blood Performing Organization Address City/[facility] Phone Number [place] [address] [place] [address] CTA HEAD (06/30/2020 4:17 PM CDT) Specimen Narrative Performed At [facility] Patient Name: VALENCIA MORA Date of : 1960 Procedure: CTA HEAD Date of Service: 06/30/2020 EXAM: CTA NECK, CTA HEAD INDICATION: stroke code- right sided wea adriana TECHNIQUE: 1. CT angiogram of the brain performed without and fol lowing IV contrast administration. MIP and 3D reformations generated and reviewed. 2. CT angiogram of the neck performed following the sa me IV contrast injection. MIP and 3D reformations gener ated and reviewed. COMPARISON(S): Outside CT dated 0 FINDINGS: Noncontrast head CT: There is no acute intra or extra axial fluid collection. The ventricles are of normal size, shape, and position. No mass effect or midline shift is present. The han-whit e matter differentiation is maintained. CT angiogram brain: There is patent flow demonstrated within intracranial segments of the internal carotid arteries . There are atherosclerotic calcifications of the petrous, caverno us, and supraclinoid ICAs without flow-limiting stenoses. The anterior cerebral arteries are patent. The middle cerebral arteries are patent. The left vertebral artery is dominant. Vertebral arteries are p atent. The basilar artery is unremarkable. The posterior cerebral arterie s are patent. Major dural venous sinuses are unremarka ble. CT angiogram neck: There are mild atherosclerotic calc ifications of the aortic arch. Common carotid arteries are patent. There are mild atherosclerotic changes of the distal common carotid a rteries without flow-limiting stenoses. There are atheromatous changes of the carotid bifurcations, left greater than right, without luminal narrowing. Cervical segments of the internal carotid arteries are mildly tortuous with widely patent flow. Left vertebral artery is jose nant. Vertebral arteries demonstrate widely patent flow along their ce rvical course. Upper lungs are clear. The airway is maintained. There are mild degenerative changes of the cervical spi ne. IMPRESSION: 1. No acute intracranial process. Findings of noncontr ast exam conveyed to Dr. Hook on 06/30/2020 4:00 PM CDT . 2. No large vessel occlusion or flow-limiting stenosis of either the intracranial or cervical vasculature. Finalized by: Bakari Nation MD on 2019 4:26 PM CDT Patient/Procedure Information: [facility] MRN/AMANDO: [id number] Order Number: [id number] Accession Number: [id number] Ordering Provider: LUIS HOOK Authorizing Provider: LUIS HOOK Procedure Note Interface, Radiantres - 06/30/2020 4:28 PM CDT Patient Name: VALENCIA MORA Date of : 1960 Procedure: CTA HEAD Date of Service: 06/30/2020 EXAM: CTA NECK, CTA HEAD INDICATION: stroke code- right sided wea kness TECHNIQUE: 1. CT angiogram of the brain performed w ithout and following IV contrast administration. MIP and 3D reformations generated and reviewed. 2. CT angiogram of the neck performed fo llowing the same IV contrast injection. MIP and 3D reformations generated and reviewed. COMPARISON(S): Outside CT dated 0 FINDINGS: Noncontrast head CT: There is no acute i ntra or extra axial fluid collection. The ventricles are of normal size, shape, and position. No mass effect or midline shift is present. The han-white matter differentiation is maintained. CT angiogram brain: There is patent flow demonstrated within intracranial segments of the internal carotid arteries. There are atherosclerotic calcifications of the petrous, cavernous, and supraclinoid ICAs without flow-limiting stenoses. The anterior cer ebral arteries are patent. The middle cerebral arteries are patent. The left vertebral artery is dominant. Vertebral arteries are patent. The basilar artery is unremarkable. The posterior cerebral art eries are patent. Major dural venous sinuses are unremarkable. CT angiogram neck: There are mild athero sclerotic calcifications of the aortic arch. Common carotid arteries are patent. There are mild atherosclerotic changes of the distal common carotid arteries without flow-limiting stenoses. There are athero matous changes of the carotid bifurcations, left greater than right, without luminal narrowing. Cervical segments of the internal carotid arteries are mildly tortuous with widely patent flow. Left vertebral artery is do minant. Vertebral arteries demonstrate widely patent flow along their cervical course. Upper lungs are clear. The airway is maintained. There are mild degenerative changes of the cervical spine. IMPRESSION: 1. No acute intracranial process. Findin gs of noncontrast exam conveyed to Dr. Hook on 06/30/2020 4:00 PM CDT. 2. No large vessel occlusion or flow-hernandez iting stenosis of either the intracranial or cervical vasculature. Finalized by: Bakari Nation MD on 2019 4:26 PM CDT Patient/Procedure Information: [facility] MRN/AMANDO: [id number] Order Number: [id number] Accession Number: [id number] Ordering Provider: LUIS HOOK Authorizing Provider: LUIS HOOK Performing Organization Address [facility] Phone Number [id number] TROPONIN I (06/30/2020 4:17 PM CDT) Pathologist Sig nature Troponin I 0.003 0.000 - 0.028 ng/mL [place] [address] [facility] Specimen Blood Performing Organization Address [facility] Phone Number [address] [place] [address], [place] [address] BASIC METABOLIC PANEL (06/30/2020 4:17 PM CDT) Pathologist Sig nature Glucose 100 70 - 100 mg/dL [address] BUN 16 6 - 22 mg/dL [address] Creatinine 0.79 (L) 0.80 - 1.[address] mg/dL BUN/Creatinine Ratio 20.3 10.0 - 25.[address] Sodium 137 135 - 145 meq/L [address] Potassium 4.4 3.5 - 5.3 meq/L [address] Chloride 104 99 - 110 meq/L [address] CO2 25 20 - 29 meq/L [address] Anion Gap with K 12 6 - 20 meq/L [address] Calcium 9.4 8.5 - 10.5 [place] [address] [facility] mg/dL Age [address] eGFR Non- >90 >=[address] [place] mL/min/1.73m2 eGFR >90 >=[address] mL/min/1.73m2 Specimen Blood Performing Organization Address [facility] Phone Number [address] [place] [address], [place] [address] GLUCOSE BY METER, POCT (06/30/2020 3:56 PM CDT) Pathologist Sig nature Glucose POC 104 (H) 70 - 99 mg/dL [facility] [facility] POINT OF CARE TESTING Specimen Blood Performing Organization Address City/State/Zipcode Phone Number [facility] POINT OF [address] [place] [address] CARE TESTING documented in this encounter Visit Diagnoses Diagnosis Cerebrovascular accident (CVA), unspecif ied mechanism (HCC) - Primary Cardiomyopathy, unspecified type (HCC) Coronary atherosclerosis of andreafski coron chrissy artery Ischemic cardiomyopathy Other specified forms of chronic ischemi c heart disease documented in this encounter Discharge Diagnoses Not on filedocumented in this encounter Administered Medications Medication Order MAR Action Action Date Dose Rate Site acetaminophen (TYLENOL) suppository 650 mg 650 mg, Rectal, Every six hours prn, Starting Halie 06/30 at 1604, Until Discontinued, fever > (indicate temp), 1 00.4 degrees F, Use rectal suppository if patient not able to take oral acetaminophen. Adult p atients: Total dose of acetaminophen from all acetaminophen con taining products should not exceed 4 grams (4,000 mg) per day. Pediatric Patients 0 - 3 months: Maximum of 60 mg/kg/24 hours of acetaminophen. Pediatric Patients old er than 3 months: Maximum of 75 mg/kg/24 hours of acetaminophen (Never exceeding 4 grams/24 logan rs)., acetaminophen (TYLENOL) tablet 650 mg Given 07/02/2020 12:13 PM CDT 650 mg 650 mg, Oral, Every six hours prn, Starting Halie 06/30/20 at 1604, Until Discontinued, fever > (indicate temp), 100.4 degrees F, Adult patients: Total dose of acetaminophen from all acetaminophen containing products should not exceed 4 grams (4000 mg) per day. Pediatric Patients 0 - 3 months: Maximum of 60 mg/kg/24 hours of acetaminophen. Pediatric Patients older than 3 months: Maximum of 75 mg/kg/24 hours of acetaminophen (Never exceeding 4 grams/day). , Given 07/01/2020 8:08 PM CDT 650 mg Given 07/01/2020 11:54 AM CDT 650 mg aspirin enteric coated tablet 81 mg Given 07/02/2020 9:20 AM CDT 81 mg 81 mg, Oral, Daily, First dose on 07/02/20 at 0900, Until Discontinued, Tablet should be swallowed whole and not be divided, crushed or chewed., atorvaSTATin (LIPITOR) tablet 80 mg Given 07/02/2020 9:20 AM CDT 80 mg 80 mg, Oral, Daily, First dose on Sat07/01/20 at 2100, Until Discontinued Given 07/01/2020 8:08 PM CDT 80 mg bisacodyl (DULCOLAX) suppository 10 mg 10 mg, Rectal, One time a day prn, Starting Halie 0 at 1604, Until Discontinued, constipation, Use second for constipatio n. If patient cannot take oral medications, use first for constipation., carbohydrate 15 g 15 g, Oral, PRN per parameter, Starting Sat07/01/20 at 0943, Until Discontinued, low blood glucose, Give 15 grams of carb ohydrate if blood glucose is less than 70 mg/dL, patient is responsive and able to take food or oral meds. Recheck blood glucose in 15 minutes. Repeat 1 time and call MD. If recheck is greater than 70 mg/dL and able to take food or oral meds, give 15 gram carbohydrate if meal or snack due in more than an hour. Serve meal or snack if due in less than 1 hour. See hypoglycemia treatment on cardex. S ources of 15 grams carbohydrate: a. 4 oz of fruit juice or b. 4 oz of soda pop (NOT diet) or c. 1 tablespoon of honey, clopidogrel (PLAVIX) tablet 75 mg Given 07/02/2020 12:12 PM CDT 75 mg 75 mg, Oral, Daily, First dose on 07/02/20 at 1045, Until Discontinued dextrose 50% IV solution 50 mL 50 mL (25 g), IV, PRN per parameter, Starting 07/01 at 0943, Until Discontinued, low blood glucose, 50 mL, Give if blood glucose is less than 70 mg/dL, patient is unresponsive or NPO, a nd has IV access. Recheck blood glucose in 15 minutes and call MD. Repeat dose if r echeck less than 70 mg/dL and call MD. If recheck is greater than 70 mg/dL and abl e to take food or oral meds, give 15 gram carbohydrate if meal or snack due in mor e than an hour. Serve meal or snack if due in less than 1 hour. See hypoglycemia treatment on car dex., dextrose chewable tablet 16 g 16 g (4 tablet), Oral, PRN per parameter, Starting Sat07/01/20 at 0943, Until Discontinued, low blood glucose, Chew before swallowin g. Give 15 gram of carbohydrate if blood glucose is less th an 70 mg/dL, patient is responsive and able to take food or oral meds. Recheck blood glucose in 15 minutes. Repeat 15 gram carbohydrate if recheck is less than 70 mg/dL and call MD. If recheck is greater than 70 mg/dL and able to take food or o ral meds, give 15 gram carbohydrate if meal or snack due in more than an hour. Serve meal or snack if due in less than 1 hour. See hypoglycemia treatment on cardex. (S ources of 15 gram carbohydrate: 4 oz fruit juice or 4 oz soda pop (NOT diet) or 1 t ablespoonful honey or 4 glucose tablets)., glucagon for injection 1 mg vial 1 mg 1 mg, Intramuscular, PRN per parameter, Starting Sat at 0943, Until Discontinued, low blood glucose, Give if blood glucose less than 70 mg/dL, patient is unresponsive or NPO, and has no IV ac cess. Establish IV access. Recheck blood glucose in 15 minutes and call MD. If r echeck is greater than 70 mg/dL and able to take food or oral meds, give 15 gram car bohydrate if meal or snack due in more than an hour. Serve meals or snack if due in less than 1 ho ur. See hypoglycemia treatment on cardex. Reconstitute vial with 1 mL of sterile water for injection for reconstitution for a final concentra tion of 1 mg/mL. Shake vial gently. Use immediately and discard unused portion. Reconstitute with 1 mL of sterile water for injection to yield 1 mg/mL. Shake vial gently. Use immediately and discard unused portion., hydrALAZINE (APRESOLINE) injection solut ion 10 mg 10 mg, IV, Every four hours prn, Startin g Sat07/01/20 at 0944, Until Discontinued, SBP > 180, 0.5 mL insulin aspart (NovoLOG) SQ correction Given 07/02/2020 12:12 PM CDT 2 Units scale (Adult) 2-12 Units, Subcutaneous, Three times a day, First dose on Sat07/01/20 at 1130, Until Discontinued, 0.12 mL, Give this dose whether patient is eating or patient is NPO MEDIUM DOSE insulin aspart (NovoLOG) subcutaneous correction scale Premeal Blood Glucose = Insulin Dose 150-199 2 units 200-249 4 units 250-299 7 units 300-349 10 units Over 349 12 units, labetalol (NORMODYNE;TRANDATE) IV soluti on 10-40 mg 10-40 mg, IV, Every ten minutes prn, Starting Halie 06/30 at 1604, Until Discontinued, specified parameter, per admin instructi ons, 20 mL, For systolic blood pressure greater than 180 mmHg or diastolic blood pressure greater than 105 mmHg: Starting dose of 10 mg Administ er over 1-2 minutes. Dose may be increased by 10 mg from previous dose (up to order ed maximum) for a single dose. Max dose 150 mg for 8 hours or 300 mg in 24 hours . Monitor blood pressure every 15 minutes x 4 and observe for hypotension and bradycardia after each dose., lisinopril (PRINIVIL, ZESTRIL) tablet 10 mg Given 07/02/2020 9:20 AM CDT 10 mg 10 mg, Oral, Daily, First dose on 07/02/20 at 0900, Until Discontinued, Hold for SBP less than 110, metoprolol succinate (TOPROL XL) SR tablet Given 07/02/2020 9:20 AM CDT 100 mg (24 hr) 100 mg 100 mg, Oral, Daily, First dose on 07/02/20 at 0800, Until Discontinued, Tablet may be broken in half, but should not be crushed or chewed. Hold for SBP less than 100 Hold for HR less than 60, ondansetron (ZOFRAN) injection solution 4 mg 4 mg, IV, Every four hours prn, Starting Halie 06/30/20 at 1604, Until Discontinued, nausea, vomiting, 2 mL, Use FIRST. If in effective after 15 minutes use haloperidol if ordered for nausea/vomiting If preference is to fur ther dilute for IV administration: First draw up patient-sp ecific dose, then dilute to 10 mL with 0.9% sodium chloride., sodium chloride 0.9% flush (adult) 10 mL Given 07/02/2020 9:22 AM CDT 10 mL 10 mL, IV, Two times a day and prn, First dose on Halie 06/30/20 at 2100, Until Discontinued, 10 mL, Flush IV line as scheduled and as often as necessary before and after meds., Given 07/01/2020 9:18 PM CDT 10 mL Given 06/30/2020 8:26 PM CDT 10 mL Medication Order MAR Action Action Date Dose Rate Site iohexol (OMNIPAQUE) 300 mg/mL Given 06/30/2020 4:18 PM CDT 85 m L solution 100 mL 100 mL, IV, Now imaging, 1 dose, Starting Halie 06/30/20 at 1617, Until Sat06/30/20 at 1618, 100 mL sodium chloride 0.9% IV solution New Bag 07/01/2020 4:22 AM CDT 100 mL/hr IV, at 100 mL/hr, Continuous, Starting Halie 06/30/20 at 1610, Until Sat07/01/20 at 0944, 1,000 mL New Bag 06/30/2020 6:33 PM CDT 100 mL/hr traMADol (ULTRAM) tablet 50 mg Given 07/02/2020 12:59 AM CDT 50 mg 50 mg, Oral, One time, 1 dose, 07/02/20 at 0010, Recommended maximum daily dose of tramadol = 400 mg. Recommended maximum daily dose in patients 75 years or older = 300 mg., documented in this encounter
== END 2020-06-30 14:35 | disposition designated cancer center or children's hospital (05) ==
LOC: LB.ED 11:35
DX: I63.9 Cerebral infarction, unspecified (principal); E78.00 Pure hypercholesterolemia, unspecified; E11.9 Type 2 diabetes mellitus without complications; Z20.828 Contact with and (suspected) exposure to other viral communicable diseases; Z79.84 Long term (current) use of oral hypoglycemic drugs; Z79.899 Other long term (current) drug therapy
CPT/HCPCS: 36415; 37195; 70450; 71045; 80053; 85025; 87635; 93005; 96374; 96375; 99285; J2997; J3490; 99284; U0002